=== PATIENT | female | born 1960 | race African-American/Black ===

== ENCOUNTER → 2016-10-27 | Outpatient (CLI) | payer BC ==
--- NOTE | 2016-10-31 09:47 | MM ---
Reason for exam: screening (asymptomatic). Last mammogram was performed 3 years and 3 months ago. History: Patient is postmenopausal. Family history of breast cancer in mother and breast cancer in aunt. Took hormonal contraceptives for 1 year. Physical Findings: A clinical breast exam by your physician is recommended on an annual basis and results should be correlated with mammographic findings. MG Screening Mammo w CAD Bilateral CC and MLO view(s) were taken. XCCL view(s) were taken of the right breast. Prior study comparison: July 29, 2013, bilateral digital screening mammo w/CAD. May 25, 2012, bilateral digital screening mammo w/CAD. May 23, 2011, bilateral digital screening mammo w/CAD. The breast tissue is heterogeneously dense. This may lower the sensitivity of mammography. No significant changes when compared with prior studies. ASSESSMENT: Negative, BI-RAD 1 RECOMMENDATION: Routine screening mammogram of both breasts in 1 year.
== END ==
LOC: RADMAMWWP 16:29
PROVIDERS: ATTEND Internal Medicine
DX: Z12.31 Encounter for screening mammogram for malignant neoplasm of breast (principal)

== ENCOUNTER → 2016-10-27 | Outpatient (CLI) | payer BC ==
--- NOTE | 2016-10-27 16:06 | FL ---
EXAMINATION: Cervical and Thoracic Esophagram DATE OF EXAM: 10/27/2016 12:13 PM CLINICAL INDICATION: 56-year-old female with dysphagia, acid reflux for 6 to 7 months, acid taste in mouth and recurrent episodes of bronchitis. COMPARISON: None Total Fluoroscopy Time: 2.3 minutes FINDINGS: The swallowing mechanism is normal and hypopharyngeal anatomy is preserved. The cervical and thoracic portions have a normal course and caliber and normal motility. The mucosa is normal and no persistent filling defect is encountered. There is a very tiny hiatal hernia. Severe gastroesophageal reflux is seen to the level of the thorac ic inlet. IMPRESSION: Very tiny hiatal hernia. However, there is severe gastroesophageal reflux seen to the level of the th oracic inlet.
== END | disposition home or self-care (01) ==
LOC: RADFLWHC 10:46
PROVIDERS: ATTEND Otolaryngology
DX: K21.9 Gastro-esophageal reflux disease without esophagitis (principal); K44.9 Diaphragmatic hernia without obstruction or gangrene
CPT/HCPCS: 74220

== ENCOUNTER 2016-12-05 07:38 | Day surgery (SDC) | payer BC ==
[2016-12-01 09:10] VITALS: BMI 30.4
[~2016-12-05 07:38] MED LIST: LACTATED RINGERS 1,000 ML IV SCH; LIDOCAINE 1% 20 ML VIAL (10MG/ML) FOR IV START INTRADERMA PRN
[2016-12-05 07:54] VITALS: RESP 16; TEMP 97.5
[2016-12-05] MEDS ORDERED: PROPOFOL 10 MG/ML 20 ML VIAL IV ONE (09:06)
--- NOTE | 2016-12-05 09:29 | P.PCN ---
Date of Procedure: 12/05/16 Preoperative Diagnosis: Postoperative Diagnosis: Procedure(s) Performed: Procedure: Esophagogastroduodenoscopy and biopsy. Preoperative diagnosis: Reflux symptoms, throat complaints and weight loss. Postoperative diagnosis: 1. Small sliding hiatal hernia with no obvious esophagitis or complicated reflux disease. 2. Mild antral gastritis. 3. Multiple biopsies obtained from the duodenum, antrum and esophagus. Preparation and sedation: Was provided by anesthesia. Brief clinical history: The patient is a 56-year-old female who I have evaluated in the office and scheduled for this exam to assess for gastroesophageal reflux disease. The patient has recent onset of throat complaints and was evaluated by ENT and was recommended further evaluation for reflux disease. She has difficulty swallowing at times and spitting of blood and has lost around 8 lbs over the last month or two. This evaluation is to assess for esophagitis or complicated reflux disease. Procedure: With the patient on her left lateral decubitus position and after informed consent and adequate sedation, I passed the Olympus-GIF 160 video upper endoscope through the cricopharyngeus down the esophagus. GE junction was around 40 cm from the incisors and there was a very small sliding hiatal hernia less than 1 cm. The esophagus did not show any obvious erosions or ulcers there were no strictures or Cherry's esophagus. The endoscope was then passed into the stomach which was insufflated with air and inspected in detail including the retroflex view in the cardia. There was some mottling and erythema in the antrum but no ulcers or erosions. Pyloric channel, duodenal bulb, post bulbar area and descending duodenum appeared within normal limits. Because of her symptoms, I obtained biopsies from the duodenum, antrum and esophagus then the endoscope was withdrawn. The patient tolerated the procedure well. Plan: The patient was reassured. Will await biopsy results and make further recommendations. We will keep you updated on her progress. Implants: Indications for Procedure: Operative Findings: Description of Procedure:
[2016-12-05 09:44] VITALS: BP 149/81; PULSE 73
== END 2016-12-05 10:01 | disposition home or self-care (01) ==
LOC: ORWHC2ENDO 07:38
DX: K29.50 Unspecified chronic gastritis without bleeding (principal); K21.0 Gastro-esophageal reflux disease with esophagitis; K44.9 Diaphragmatic hernia without obstruction or gangrene; I10 Essential (primary) hypertension; Z79.899 Other long term (current) drug therapy
CPT/HCPCS: 88305; 88342; 43239; J2704

== ENCOUNTER → 2017-09-08 | Outpatient (CLI) | payer OTHER ==
--- NOTE | 2017-09-08 19:02 | CT ---
EXAMINATION TYPE: CT sinus wo con DATE OF EXAM: 09/08/2017 COMPARISON: NONE HISTORY: c/o headache, sinus pressure CT DLP: 591 mGycm. Automated Exposure Control for Dose Reduction was Utilized. TECHNIQUE: CT scan of the sinuses is performed without contrast, axial images are obtained, coronal r eformatted images are also reviewed. FINDINGS: There is normal development and aeration of the paranasal sinuses. I see no bony destructiv e process. Maxilla is intact. Zygoma appear intact. Orbital margins are intact. There is no evidence of retro-orbital mass. There is bilateral patency of the ostiomeatal complex. CONCLUSION: Normal CT scan of the paranasal sinuses.
== END | disposition home or self-care (01) ==
LOC: RADCTMAIN 18:05
PROVIDERS: ATTEND Internal Medicine
DX: R09.81 Nasal congestion (principal); R51 Headache
CPT/HCPCS: 70486

== ENCOUNTER → 2017-12-27 | Outpatient (CLI) | payer OTHER ==
--- NOTE | 2017-12-28 10:25 | MM ---
Reason for exam: screening (asymptomatic). Last mammogram was performed 1 year and 2 months ago. History: Patient is postmenopausal. Family history of breast cancer in mother and breast cancer in aunt. Took hormonal contraceptives for 1 year. Physical Findings: A clinical breast exam by your physician is recommended on an annual basis and results should be correlated with mammographic findings. MG Screening Mammo w CAD Bilateral CC and MLO view(s) were taken. Prior study comparison: October 27, 2016, bilateral MG screening mammo w CAD. July 29, 2013, bilateral digital screening mammo w/CAD. The breast tissue is heterogeneously dense. This may lower the sensitivity of mammography. No suspicious abnormality. No significant changes when compared with prior studies. ASSESSMENT: Negative, BI-RAD 1 RECOMMENDATION: Routine screening mammogram of both breasts in 1 year.
== END | disposition home or self-care (01) ==
LOC: RADMAMWWP 07:33
PROVIDERS: ATTEND Internal Medicine
DX: Z12.31 Encounter for screening mammogram for malignant neoplasm of breast (principal)
CPT/HCPCS: 77067

== ENCOUNTER → 2018-04-30 | Outpatient (CLI) | payer OTHER ==
--- NOTE | 2018-05-01 04:18 | MR ---
EXAMINATION TYPE: MR forearm LT wo/w con DATE OF EXAM: 04/30/2018 COMPARISON: None HISTORY: Localized swelling, mass and lump since December 2017, no known injury, 10ml gadavist CONTRAST: Standard multiplanar, multisequence MRI departmental protocol utilizing 10ml mL intravenous Gadavist gadolinium contrast. FINDINGS: The radius and ulna appear intact. The flexor and extensor muscles of the forearm appear in tact. I see no evidence of a soft tissue mass. There is no evidence of focal bony destructive process . I see no pathologic fluid collection. Contrast images show no pathologic enhancement. IMPRESSION: Negative MR scan of the left forearm. No evidence of a soft tissue mass. Location of the mass is not specified in the history.
== END | disposition home or self-care (01) ==
LOC: RADMRIMAIN 20:56
PROVIDERS: ATTEND Physician Assistant Medical
DX: R22.32 Localized swelling, mass and lump, left upper limb (principal)
CPT/HCPCS: 73220; A9585

== ENCOUNTER → 2018-05-02 | Outpatient (CLI) | payer OTHER ==
--- NOTE | 2018-05-03 01:45 | MR ---
EXAMINATION TYPE: MR wrist LT wo/w con DATE OF EXAM: 05/02/2018 COMPARISON: None HISTORY: Pain and Swelling, Gadavist 10 CONTRAST: Standard multiplanar, multisequence MRI departmental protocol utilizing 10 mL intravenous Gadavist ga dolinium contrast. FINDINGS: There is moderate wrist joint effusion. The carpal bones are intact. The proximal metacarpa ls are intact. The flexor and extensor tendons of the wrist appear intact. I see no bony destructive process. On the sagittal images there is somewhat extension deformity of the lunate in relation to th e capitate. Scaphoid is intact. I see no evidence of ligamentous tear. There is increased fluid signa l at the triangular cartilage. There is no evidence of a soft tissue mass. IMPRESSION: There is moderate wrist joint effusion and fluid around the carpal bones consistent with a nonspecifi c synovitis. There is malalignment of the lunate capitate articulation suggestive of some ligamentous instability. No fracture seen.
== END ==
LOC: RADMRIMAIN 20:02
PROVIDERS: ATTEND Internal Medicine Rheumatology
DX: M25.439 Effusion, unspecified wrist (principal)
CPT/HCPCS: 73223; A9585

== ENCOUNTER → 2018-05-14 | Outpatient (CLI) | payer OTHER ==
--- NOTE | 2018-05-15 08:39 | XR ---
EXAMINATION TYPE: XR chest 2V DATE OF EXAM: 05/14/2018 COMPARISON: Prior chest x-ray 08/03/2014 HISTORY: Cough, congestion and shortness of breath TECHNIQUE: Frontal and lateral views of the chest are obtained. FINDINGS: There is no focal air space opacity, pleural effusion, or pneumothorax seen. The cardiac silhouette size is within normal limits. The osseous structures are intact. IMPRESSION: No acute cardiopulmonary process.
== END | disposition home or self-care (01) ==
LOC: RADXRMAIN 16:42
PROVIDERS: ATTEND Internal Medicine
DX: R05 Cough (principal)
CPT/HCPCS: 71046

== ENCOUNTER → 2018-09-24 | Outpatient (CLI) | payer OTHER ==
--- NOTE | 2018-09-25 08:28 | XR ---
EXAMINATION TYPE: XR chest 2V DATE OF EXAM: 09/24/2018 COMPARISON: 05/14/2018 INDICATION: Cough TECHNIQUE: Frontal and lateral views of the chest are obtained. FINDINGS: The heart size is normal. The pulmonary vasculature is normal. The lungs are clear. IMPRESSION: 1. No acute pulmonary process.
== END | disposition home or self-care (01) ==
LOC: RADXRMAIN 17:50
PROVIDERS: ATTEND Internal Medicine
DX: R05 Cough (principal)
CPT/HCPCS: 71046

== ENCOUNTER → 2019-01-02 | Outpatient (CLI) | payer OTHER ==
--- NOTE | 2019-01-02 13:37 | MM ---
Reason for exam: screening (asymptomatic). Last mammogram was performed 1 year ago. History: Patient is postmenopausal. Family history of breast cancer in mother and breast cancer in aunt. Took hormonal contraceptives for 1 year. Physical Findings: A clinical breast exam by your physician is recommended on an annual basis and results should be correlated with mammographic findings. MG Screening Mammo w CAD Bilateral CC and MLO view(s) were taken. Prior study comparison: December 27, 2017, bilateral MG screening mammo w CAD. October 27, 2016, bilateral MG screening mammo w CAD. The breast tissue is heterogeneously dense. This may lower the sensitivity of mammography. There are benign appearing round calcifications bilaterally. There is no discrete abnormality. ASSESSMENT: Benign, BI-RAD 2 RECOMMENDATION: Routine screening mammogram of both breasts in 1 year.
== END | disposition home or self-care (01) ==
LOC: RADMAMWWP 07:44
PROVIDERS: ATTEND Internal Medicine
DX: Z12.31 Encounter for screening mammogram for malignant neoplasm of breast (principal)
CPT/HCPCS: 77067

== ENCOUNTER 2020-05-05 17:20 | Emergency (ER) | payer MEDICARE, OTHER ==
[2020-05-05] MEDS ORDERED: ACETAMINOPHEN TAB 325 MG TAB PO STA (17:42)
[2020-05-05] MEDS ORDERED: SODIUM CHLORIDE 0.9% 1,000 ML IV ONE (17:42)
--- NOTE | 2020-05-05 17:42 | ED ---
URI HPI - General Chief Complaint: Upper Respiratory Infection Stated Complaint: Covid symptoms Time Seen by Provider: 05/05/20 17:27 Source: patient Mode of arrival: ambulatory Limitations: no limitations - History of Present Illness Initial Comments: 60yo female presenting for covid exposure with symptoms. Pt states she cannot taste/smell has cough, and at times feels SOB. Patient states that her daughter tested positive for covid. pt denies chest pain. nausea, vomiting, diarrhea. She denies additional complaints. Pt upon arrival appears nontoxic in no acute distress. She does have a low grade fever, no tylenol within last 6 hours. - Related Data Home Medications Medication Instructions Recorded Confirmed Acetaminophen [Tylenol Arthritis] 1,300 mg PO DAILY PRN 12/01/16 12/05/16 Omeprazole(Dose Unknown) 2 tab PO QAM 12/01/16 12/05/16 Zolpidem [Ambien] 10 mg PO HS 12/01/16 12/05/16 Allergies Allergy/AdvReac Type Severity Reaction Status Date / Time No Known Allergies Allergy Verified 05/05/20 17:24 Review of Systems ROS Statement: Those systems with pertinent positive or pertinent negative responses have been documented in the HPI. ROS Other: All systems not noted in ROS Statement are negative. Past Medical History Past Medical History: GERD/Reflux, Hypertension Additional Past Medical History / Comment(s): hx migraines, hiatal hernia, constipatiion, arthritis, History of Any Multi-Drug Resistant Organisms: MRSA Date of last positivie culture/infection: 2013 MDRO Source:: leg leg Past Surgical History: Uterine Ablation Past Anesthesia/Blood Transfusion Reactions: No Reported Reaction Past Psychological History: No Psychological Hx Reported Smoking Status: Never smoker Past Alcohol Use History: Rare Past Drug Use History: None Reported - Past Family History Mother Family Medical History: Cancer General Exam - General Exam Comments Initial Comments: General: The patient is awake and alert, in no distress Eye: Pupils are equal, round and reactive to light, extra-ocular movements are intact. No nystagmus. There is normal conjunctiva bilaterally. No signs of icterus. Ears, nose, mouth and throat: There are moist mucous membranes and no oral lesions. Neck: The neck is supple, there is no tenderness or JVD. Cardiovascular: There is a regular rate and rhythm. No murmur, rub or gallop is appreciated. Respiratory: Lungs are clear to auscultation, respirations are non-labored, breath sounds are equal. No wheezes, stridor, rales, or rhonchi. Gastrointestinal: Soft, non-distended, non-tender abdomen without masses or organomegaly noted. There is no rebound or guarding present. Musculoskeletal: Normal ROM, no tenderness. Strength 5/5. Sensation intact. Pulses equal bilaterally 2+. Neurological: A&O x 3. CN II-XII intact grosslu, There are no obvious motor or sensory deficits. Coordination appears grossly intact. Speech is normal. Skin: Skin is warm and dry and no rashes or lesions are noted. Psychiatric: Cooperative, appropriate mood & affect, normal judgment. Limitations: no limitations Course Vital Signs 05/05/20 05/05/20 05/05/20 17:22 17:24 18:49 Temperature 100.1 F H 98.3 F Pulse Rate 70 88 Respiratory 18 18 16 Rate Blood Pressure 115/72 110/74 O2 Sat by Pulse 96 93 L Oximetry 05/05/20 19:21 Temperature 98.2 F Pulse Rate 68 Respiratory 14 Rate Blood Pressure 122/64 O2 Sat by Pulse 94 L Oximetry Medical Decision Making - Medical Decision Making 60yo female presenting to the ER today for cc of covid symptoms. covd +. CXR clear. Lungs clear. Pt VS documented s 93-94% im not sure if these were automatically transferred from continuous pulse oximetery electronically. pt when evaluated initially and evalluated prior to leaving was 98% on RA with appropriate placement of pulse oximeter and wave force. Pt does not appear in respiratory distress. Results and quarantine instruction/symptomatic treatment and return parameters discussed pt discharged appearing well. Attending agreeable to care plan. - Lab Data Result diagrams: 05/05/20 17:56 05/05/20 17:56 Lab Results 05/05/20 05/05/20 05/05/20 Range/Units 17:56 17:56 18:21 WBC 7.7 (3.8-10.6) k/uL RBC 4.71 (3.80-5.40) m/uL Hgb 14.7 (11.4-16.0) gm/dL Hct 44.2 (34.0-46.0) % MCV 93.8 (80.0-100.0) fL MCH 31.2 (25.0-35.0) pg MCHC 33.3 (31.0-37.0) g/dL RDW 13.4 (11.5-15.5) % Plt Count 201 (150-450) k/uL MPV 9.5 Neutrophils % 70 % Lymphocytes % 21 % Monocytes % 4 % Eosinophils % 1 % Basophils % 3 % Neutrophils # 5.4 (1.3-7.7) k/uL Lymphocytes # 1.6 (1.0-4.8) k/uL Monocytes # 0.3 (0-1.0) k/uL Eosinophils # 0.1 (0-0.7) k/uL Basophils # 0.2 (0-0.2) k/uL Sodium 136 L (137-145) mmol/L Potassium 4.6 (3.5-5.1) mmol/L Chloride 103 (98-107) mmol/L Carbon Dioxide 24 (22-30) mmol/L Anion Gap 9 mmol/L BUN 13 (7-17) mg/dL Creatinine 0.81 (0.52-1.04) mg/dL Est GFR (CKD-EPI)AfAm >90 (>60 ml/min/1.73 sqM) Est GFR (CKD-EPI)NonAf 81 (>60 ml/min/1.73 sqM) Glucose 124 H (74-99) mg/dL Calcium 9.0 (8.4-10.2) mg/dL Total Bilirubin 0.5 (0.2-1.3) mg/dL AST 31 (14-36) U/L ALT 18 (4-34) U/L Alkaline Phosphatase 68 (38-126) U/L Total Protein 7.5 (6.3-8.2) g/dL Albumin 4.1 (3.5-5.0) g/dL Coronavirus (PCR) Detected A (Not Detectd) Disposition Clinical Impression: Loss of taste, Loss of smell, Body aches, COVID-19, Cough Disposition: HOME SELF-CARE Condition: Good Instructions (If sedation given, give patient instructions): Upper Respiratory Infection (ED) Additional Instructions: Please use medication as discussed. Please follow-up with family doctor in the next 2 days. Recommend buying pulse oximeter and monitoring at home. Return for worsening symptoms (Shortness of breath). Please return to emergency room if the symptoms increase or worsen or for any other concerns. Is patient prescribed a controlled substance at d/c from ED?: No Referrals: None,Stated [Primary Care Provider] - 1-2 days Time of Disposition: 19:09
[2020-05-05] MEDS ORDERED: SODIUM CHLORIDE 0.9% 1,000 ML IV SCH (17:45)
[2020-05-05] MEDS ORDERED: DEXAMETHASONE SOD PHOSPHATE 4 MG/ML 1 ML VIAL IV STA (18:12)
[2020-05-05 18:32] LABS: Basophils # (A) 0.2 k/uL (0-0.2); Basophils % (A) 3 %; Eosinophils # (A) 0.1 k/uL (0-0.7); Eosinophils % (A) 1 %; HCT 44.2 % (34.0-46.0); HGB 14.7 gm/dL (11.4-16.0); Lymphocytes # (A) 1.6 k/uL (1.0-4.8); Lymphocytes % (A) 21 %; MCH 31.2 pg (25.0-35.0); MCHC 33.3 g/dL (31.0-37.0); MCV 93.8 fL (80.0-100.0); Mean Platelet Volume 9.5; Monocytes # (A) 0.3 k/uL (0-1.0); Monocytes % (A) 4 %; Neutrophils # (A) 5.4 k/uL (1.3-7.7); Neutrophils % (A) 70 %; Platelet Count 201 k/uL (150-450); RBC 4.71 m/uL (3.80-5.40); RDW 13.4 % (11.5-15.5); WBC 7.7 k/uL (3.8-10.6)
[2020-05-05 18:42] LABS: ALT 18 U/L (4-34); AST 31 U/L (14-36); African American GFR (CKD) >90 (>60 ml/min/1.73 sqM); Albumin 4.1 g/dL (3.5-5.0); Alkaline Phosphatase 68 U/L (38-126); Anion Gap 9 mmol/L; Blood Urea Nitrogen 13 mg/dL (7-17); Carbon Dioxide 24 mmol/L (22-30); Chloride 103 mmol/L (98-107); Glucose 124 mg/dL (74-99); Non-African American GFR(CKD) 81 (>60 ml/min/1.73 sqM); Potassium 4.6 mmol/L (3.5-5.1); Sodium 136 mmol/L (137-145); Total Bilirubin 0.5 mg/dL (0.2-1.3); Total Protein 7.5 g/dL (6.3-8.2)
[2020-05-05 19:23] VITALS: BP 122/64; PULSE 68; RESP 14; TEMP 98.2
--- NOTE | 2020-05-05 19:31 | XR ---
EXAMINATION TYPE: XR chest 2V DATE OF EXAM: 05/05/2020 COMPARISON: 09/24/2018 HISTORY: Cough. Fever TECHNIQUE: FINDINGS: Heart is normal. Lungs are clear of infiltrate. There is no heart failure. There are no hil ar masses. The bony thorax is intact. IMPRESSION: No active cardiopulmonary disease. There is improved inspiration compared to old exam.
== END 2020-05-05 19:23 | disposition home or self-care (01) ==
LOC: EC 17:20
DX: U07.1 COVID-19 (principal); M19.90 Unspecified osteoarthritis, unspecified site; K21.9 Gastro-esophageal reflux disease without esophagitis; Z79.899 Other long term (current) drug therapy; Z86.14 Personal history of Methicillin resistant Staphylococcus aureus infection
CPT/HCPCS: 36415; 80053; 85025; 87635; 71046; 99285; 96374; 96361; J1100

== ENCOUNTER → 2020-06-25 | Outpatient (CLI) | payer MEDICARE, OTHER ==
--- NOTE | 2020-06-25 10:19 | XR ---
EXAMINATION TYPE: XR chest 2V DATE OF EXAM: 06/25/2020 COMPARISON: Chest x-ray May 05, 2020 HISTORY: Covid 19 +2 months earlier with left-sided pain TECHNIQUE: Frontal and lateral views of the chest are obtained. FINDINGS: There is no focal air space opacity, pleural effusion, or pneumothorax seen. The cardiac silhouette size remains within normal limits with atherosclerotic change in aortic knob. The osseo us structures are intact. IMPRESSION: No acute cardiopulmonary process. No significant change from prior.
--- NOTE | 2020-06-26 10:06 | MM ---
Reason for exam: screening (asymptomatic). Last mammogram was performed 1 year and 6 months ago. History: Patient is postmenopausal. Family history of breast cancer in mother and breast cancer in aunt. Took hormonal contraceptives for 1 year. Physical Findings: A clinical breast exam by your physician is recommended on an annual basis and results should be correlated with mammographic findings. MG Screening Mammo w CAD Bilateral CC and MLO view(s) were taken. Prior study comparison: January 02, 2019, bilateral MG screening mammo w CAD. December 27, 2017, bilateral MG screening mammo w CAD. The breast tissue is heterogeneously dense. This may lower the sensitivity of mammography. There are benign appearing round calcifications bilaterally. There is no discrete abnormality. ASSESSMENT: Benign, BI-RAD 2 RECOMMENDATION: Routine screening mammogram of both breasts in 1 year.
== END | disposition home or self-care (01) ==
LOC: RADMAMWWP 09:19
PROVIDERS: ATTEND Internal Medicine
DX: Z12.31 Encounter for screening mammogram for malignant neoplasm of breast (principal); R07.9 Chest pain, unspecified
CPT/HCPCS: 71046; 77067

== ENCOUNTER → 2021-05-18 | Outpatient (CLI) | payer MEDICARE, OTHER ==
--- NOTE | 2021-05-18 12:16 | XR ---
EXAMINATION TYPE: XR lumbosacral spine min 4V DATE OF EXAM: 05/18/2021 CLINICAL HISTORY: Osteoarthritis for 3 to 4 years. Low back pain. TECHNIQUE: Frontal, lateral, and oblique images of the lumbar spine are obtained. COMPARISON: None FINDINGS: There are 5 lumbar type vertebral bodies identified. The lumbar spine shows satisfactory alignment without evidence of acute fracture or dislocation. Mild disc space narrowing L5-S1 level Ve rtebral body heights and disk space heights are otherwise within normal limits. The oblique images are suboptimal due to poor positioning. Facet arthropathy in the mid to lower lumbar spine greatest l eft L4-L5 level. Mild multilevel anterior and lateral spurring is present in the mid to lower lumbar spine. The overlying soft tissue appears unremarkable. IMPRESSION: As above.
== END | disposition home or self-care (01) ==
LOC: RADXRMAIN 10:35
PROVIDERS: ATTEND Internal Medicine
DX: M47.816 Spondylosis without myelopathy or radiculopathy, lumbar region (principal); M51.37 Other intervertebral disc degeneration, lumbosacral region; M25.78 Osteophyte, vertebrae
CPT/HCPCS: 72110

== ENCOUNTER → 2021-09-13 | Outpatient (CLI) | payer MEDICARE, OTHER ==
--- NOTE | 2021-09-14 12:01 | MM ---
Reason for exam: screening (asymptomatic). Last mammogram was performed 1 year and 3 months ago. History: Patient is postmenopausal. Family history of breast cancer in mother and breast cancer in aunt. Took hormonal contraceptives for 1 year. Physical Findings: A clinical breast exam by your physician is recommended on an annual basis and results should be correlated with mammographic findings. MG Screening Mammo w CAD Bilateral CC and MLO view(s) were taken. Prior study comparison: June 25, 2020, bilateral MG screening mammo w CAD. January 02, 2019, bilateral MG screening mammo w CAD. The breast tissue is heterogeneously dense. This may lower the sensitivity of mammography. Benign appearing bilateral calcifications. No significant changes when compared with prior studies. ASSESSMENT: Benign, BI-RAD 2 RECOMMENDATION: Routine screening mammogram of both breasts in 1 year.
== END | disposition home or self-care (01) ==
LOC: RADMAMWWP 08:19
PROVIDERS: ATTEND Internal Medicine
DX: Z12.31 Encounter for screening mammogram for malignant neoplasm of breast (principal); Z78.0 Asymptomatic menopausal state; Z80.3 Family history of malignant neoplasm of breast
CPT/HCPCS: 77067

== ENCOUNTER → 2021-12-20 | Outpatient (CLI) | payer MEDICARE ==
[2021-12-20 18:42] LABS: HGB 12.8 g/dL (12.0-15.0); MCV 96.9 fL (80.0-97.0); Mean Platelet Volume 12.6 fL (9.5-12.2); NRBC Per 100 WBC 0 /100 WBCS (0.0-0.0); Platelet Count 285 X 10*3/uL (140-440); RBC 4.13 X 10*6/uL (4.10-5.20); RDW 14.1 % (11.5-14.5); WBC 7.74 X 10*3/uL (4.50-10.00)
[2021-12-20 19:03] LABS: ALT 17 U/L (8-44); AST 19 U/L (13-35); African American GFR (CKD) 81.1 (60.0-200.0); Albumin 4.4 g/dL (3.8-4.9); Albumin/Globulin Ratio 1.76 (1.60-3.17); Alkaline Phosphatase 70 U/L (41-126); BUN/Creat Ratio 17.44 Ratio (12.00-20.00); Blood Urea Nitrogen 15.7 mg/dL (9.0-27.0); Calcium 9.9 mg/dL (8.7-10.3); Carbon Dioxide 23.7 mmol/L (20.0-27.5); Chloride 107 mmol/L (96-109); Globulin 2.5 g/dL (1.6-3.3); Glucose 140 mg/dL (70-110); Potassium 3.8 mmol/L (3.5-5.5); Sodium 143 mmol/L (135-145); Total Protein 6.9 g/dL (6.2-8.2)
== END | disposition home or self-care (01) ==
LOC: LABWHC1 11:45
PROVIDERS: ATTEND Internal Medicine Interventional Cardiology
DX: I48.0 Paroxysmal atrial fibrillation (principal); I47.1 Supraventricular tachycardia
CPT/HCPCS: 36415; 80053; 84443; 85027

== ENCOUNTER 2022-01-21 21:42 | Observation (INO) | payer MEDICARE ==
[2022-01-21] MEDS ORDERED: SODIUM CHLORIDE 0.9% 1,000 ML IV STA (21:47)
--- NOTE | 2022-01-21 21:48 | ED ---
Chest Pain HPI - General Stated Complaint: Chest Pain Time Seen by Provider: 01/21/22 21:43 - Related Data Home Medications Medication Instructions Recorded Confirmed Zolpidem [Ambien] 10 mg PO HS PRN 12/01/16 01/21/22 Cholecalciferol [Vitamin D3 (25 25 mcg PO DAILY 01/21/22 01/21/22 Mcg = 1000 Iu)] DULoxetine HCL [Cymbalta] 30 mg PO BID 01/21/22 01/21/22 Diltiazem Oral [Cardizem Oral] 30 mg PO DAILY 01/21/22 01/21/22 Gabapentin 800 mg PO DAILY 01/21/22 01/21/22 Losartan [Cozaar] 100 mg PO DAILY 01/21/22 01/21/22 Rivaroxaban [Xarelto] 20 mg PO HS 01/21/22 01/21/22 Rosuvastatin [Crestor] 10 mg PO DAILY 01/21/22 01/21/22 Semaglutide [Rybelsus] 7 mg PO [id number] 01/21/22 01/21/22 hydroCHLOROthiazide 12.5 mg PO DAILY 01/21/22 01/21/22 Allergies Allergy/AdvReac Type Severity Reaction Status Date / Time No Known Allergies Allergy Verified 01/21/22 23:28 Review of Systems ROS Statement: Those systems with pertinent positive or pertinent negative responses have been documented in the HPI. ROS Other: All systems not noted in ROS Statement are negative. EKG Findings - EKG Comments: EKG Findings:: EKG is sinus 88 GA once denying QRS 82 QTC 415 Past Medical History Past Medical History: GERD/Reflux, Hypertension Additional Past Medical History / Comment(s): hx migraines, hiatal hernia, constipatiion, arthritis, History of Any Multi-Drug Resistant Organisms: MRSA Date of last positivie culture/infection: 2013 MDRO Source:: leg leg Past Surgical History: Uterine Ablation Past Anesthesia/Blood Transfusion Reactions: No Reported Reaction Past Psychological History: No Psychological Hx Reported Smoking Status: Never smoker Past Alcohol Use History: Rare Past Drug Use History: None Reported - Past Family History Mother Family Medical History: Cancer Course Vital Signs 01/21/22 01/21/22 01/21/22 21:50 22:06 23:51 Temperature 98.2 F Pulse Rate 86 70 Pulse Rate [ 80 Bilateral Radial] Respiratory 16 16 Rate Blood Pressure 132/88 132/88 O2 Sat by Pulse 100 100 Oximetry Disposition Clinical Impression: Chest pain Disposition: ADMITTED IP TO THIS HOSP Condition: Good Instructions (If sedation given, give patient instructions): Chest Pain (ED) Is patient prescribed a controlled substance at d/c from ED?: No Referrals: Angel Park MD [Primary Care Provider] - 1-2 days
--- NOTE | 2022-01-21 22:05 | XR ---
EXAMINATION TYPE: XR chest 1V portable DATE OF EXAM: 01/21/2022 10:00 PM COMPARISON: Chest x-ray 06/25/2020 TECHNIQUE: XR chest 1V portable . CLINICAL INDICATION:Female, 61 years old with history of chest pain; FINDINGS: Lungs/Pleura: There is no evidence of pleural effusion, focal consolidation, or pneumothorax. Pulmonary vascularity: Unremarkable. Heart/mediastinum: Cardiomediastinal silhouette is unremarkable. Musculoskeletal: No acute osseous pathology. IMPRESSION: No acute cardiopulmonary disease/process.
[2022-01-21 22:09] LABS: Basophils # (A) 0.1 k/uL (0-0.2); Basophils % (A) 1 %; Eosinophils # (A) 0.2 k/uL (0-0.7); Eosinophils % (A) 2 %; HCT 46.7 % (34.0-46.0); HGB 14.6 gm/dL (11.4-16.0); Lymphocytes # (A) 3.5 k/uL (1.0-4.8); Lymphocytes % (A) 35 %; MCH 30.7 pg (25.0-35.0); MCHC 31.4 g/dL (31.0-37.0); MCV 97.8 fL (80.0-100.0); Mean Platelet Volume 9.7; Monocytes # (A) 0.3 k/uL (0-1.0); Monocytes % (A) 3 %; Neutrophils # (A) 5.8 k/uL (1.3-7.7); Neutrophils % (A) 59 %; Platelet Count 307 k/uL (150-450); RBC 4.77 m/uL (3.80-5.40); WBC 9.9 k/uL (3.8-10.6)
[2022-01-21 22:17] LABS: Albumin 4.6 g/dL (3.5-5.0); Calcium 10.1 mg/dL (8.4-10.2); Phosphorus 2.4 mg/dL (2.5-4.5); Potassium 3.9 mmol/L (3.5-5.1); Total Bilirubin 0.4 mg/dL (0.2-1.3); Total Protein 7.5 g/dL (6.3-8.2)
[2022-01-21 22:20] LABS: INR 1.3 (<1.2); Partial Thromboplastin Time 34.6 sec (22.0-30.0); Prothrombin Time 13.9 sec (9.0-12.0)
[2022-01-21] MEDS ORDERED: NITROGLYCERIN SL TABS 0.4 MG TAB SUBLINGUAL PRN (23:52)
[2022-01-21] MEDS ORDERED: ASPIRIN 81 MG PO STA (23:52)
[2022-01-22] MEDS ORDERED: ASPIRIN 325 MG TAB PO SCH (09:00)
[2022-01-22] MEDS ORDERED: HEPARIN SODIUM 1,000 UN/ML (10ML VL) IV PRN (09:40)
[2022-01-22] MEDS ORDERED: HEPARIN SODIUM 1,000 UN/ML (10ML VL) IV ONE (09:40)
[2022-01-22 10:13] LABS: Chol/HDL Ratio 2.45 Ratio; LDL Cholesterol,Calculated 71.9 mg/dL (0.0-131.0); VLDL Calculation 15.06 mg/dL (5.00-40.00)
[2022-01-22] MEDS: HEPARIN SOD,PORK IN 0.45% NACL 25,000 UNIT in 0.45% NACL 1 250ML.BAG IV SCH (10:40)
--- NOTE | 2022-01-22 11:38 | P.CRDCN ---
History of Present Illness Consult date: 01/22/22 History of present illness: History of Present Illness: The patient is a 61-year-old female with known history of hypertension, hyperlipidemia, diabetes mellitus and paroxysmal atrial fibrillation, scheduled to undergo ablation in the next few weeks who presented with symptoms of palpitations, dizziness and presyncope. She had no associated chest discomfort. Her blood pressure was on the low side. On presentation to the emergency room she was in sinus mechanism. There was no evidence of atrial fibrillation since admission. Her creatinine is up to 1.7 which is higher than her baseline, her troponin on presentation was 0.012 subsequently 0.033 and 0.064. She had no acute EKG changes She denies any PND, orthopnea or peripheral edema. She denies any syncope. Her systolic function in the past has been normal and her stress echocardiogram revealed no evidence of stress induced ischemia. The patient has a prior history of SVT and recently was documented to have paroxysmal atrial ablation. Her symptoms started after she had COVID infection. She is trying to increase her physical activity, she has no chest discomfort with activity and she has mild dyspnea. She has no documented history of CHF or ischemic heart disease. Her risk factors are positive for hypertension, hyperlipidemia and diabetes, she is a nonsmoker. Medications: Cardizem 120 mg daily, hydrochlorothiazide 12-1/2 mg daily, Crestor 10 mg daily, losartan 100 mg daily, Xarelto 20 mg daily Review of Systems: Respiratory: She had dyspnea with the arrhythmia GI: No nausea or vomiting . No history of peptic ulcer disease. No recent GI bleed. : No hematuria or dysuria. Nervous System: No stroke or seizure. Physical Examination: 61-year-old female, alert and oriented no apparent distress ,Blood pressure 113/70, Heart rate 69 Head: Normocephalic. Eyes: Sclerae nonicteric. Neck: Good carotid upstroke, no bruit, no jugular venous distention. Lungs: Clear to auscultation. Heart: Regular rate and rhythm, S1-S2, no S3, no rub. Systolic ejection murmur. Abdomen: Soft nontender, positive bowel sounds no organomegaly. Extremities: No edema, intact distal pulses. Labs: BUN 19, creatinine 1.7, potassium 3.9, LDL 71 EKG: Sinus mechanism with no acute ST segment changes Impression: 1. Symptoms of palpitations probably paroxysmal atrial fibrillation in a patient scheduled to undergo ablation. Her score is 3 2. Mild troponin elevation most likely related to the arrhythmia, no evidence to suggest acute ischemic event 3. Acute renal injury, etiology unclear 4. History of hypertension 5. History of diabetes 6. History of hyperlipidemia Plan: 1. Restart Cardizem and statin 2. Hold Cozaar and diuretics 3. Obtain an echocardiogram with Doppler 4. Follow renal functions 5. Depending on her progress further recommendations will be made. Thank you for this consult we will follow with you. Past Medical History Past Medical History: GERD/Reflux, Hypertension Additional Past Medical History / Comment(s): hx migraines, hiatal hernia, constipatiion, arthritis, History of Any Multi-Drug Resistant Organisms: MRSA Date of last positivie culture/infection: 2013 MDRO Source:: leg leg Past Surgical History: Uterine Ablation Past Anesthesia/Blood Transfusion Reactions: No Reported Reaction Past Psychological History: No Psychological Hx Reported Smoking Status: Never smoker Past Alcohol Use History: Rare Past Drug Use History: None Reported - Past Family History Mother Family Medical History: Cancer Medications and Allergies Home Medications Medication Instructions Recorded Confirmed Type Zolpidem [Ambien] 10 mg PO HS PRN 12/01/16 01/21/22 History Cholecalciferol [Vitamin D3 (25 25 mcg PO DAILY 01/21/22 01/21/22 History Mcg = 1000 Iu)] DULoxetine HCL [Cymbalta] 30 mg PO BID 01/21/22 01/21/22 History Diltiazem Oral [Cardizem Oral] 30 mg PO DAILY 01/21/22 01/21/22 History Gabapentin 800 mg PO DAILY 01/21/22 01/21/22 History Losartan [Cozaar] 100 mg PO DAILY 01/21/22 01/21/22 History Rivaroxaban [Xarelto] 20 mg PO HS 01/21/22 01/21/22 History Rosuvastatin [Crestor] 10 mg PO DAILY 01/21/22 01/21/22 History Semaglutide [Rybelsus] 7 mg PO AC-BRKFST 01/21/22 01/21/22 History hydroCHLOROthiazide 12.5 mg PO DAILY 01/21/22 01/21/22 History Allergies Allergy/AdvReac Type Severity Reaction Status Date / Time No Known Allergies Allergy Verified 08/12/22 23:28 Physical Exam Vitals: Vital Signs Temp Pulse Pulse Resp BP Pulse Ox 01/22/22 06:49 69 14 113/75 96 01/21/22 23:51 70 16 132/88 100 01/21/22 22:06 80 01/21/22 21:50 98.2 F 86 16 132/88 100 Intake and Output 01/21/22 01/22/22 01/22/22 22:59 06:59 14:59 Other: Weight 102.058 kg Results 01/21/22 21:50 01/21/22 21:50 Cardiac Enzymes 01/21/22 01/21/22 01/22/22 Range/Units 21:50 21:50 00:40 AST 27 (14-36) U/L Troponin I <0.012 0.033 (0.000-0.034) ng/mL 01/22/22 Range/Units 03:06 AST (14-36) U/L Troponin I 0.064 H* (0.000-0.034) ng/mL Coagulation 01/21/22 Range/Units 21:50 PT 13.9 H (9.0-12.0) sec APTT 34.6 H (22.0-30.0) sec Lipids 01/22/22 Range/Units 03:06 Triglycerides 75.30 (0.00-149.00) mg/dL Cholesterol 147.00 (0.00-200.00) mg/dL HDL Cholesterol 60.00 (40.00-60.00) mg/dL Cholesterol/HDL Ratio 2.45 Ratio CBC 01/21/22 Range/Units 21:50 WBC 9.9 (3.8-10.6) k/uL RBC 4.77 (3.80-5.40) m/uL Hgb 14.6 (11.4-16.0) gm/dL Hct 46.7 H (34.0-46.0) % Plt Count 307 (150-450) k/uL Comprehensive Metabolic Panel 01/21/22 Range/Units 21:50 Sodium 142 (137-145) mmol/L Potassium 3.9 (3.5-5.1) mmol/L Chloride 106 (98-107) mmol/L Carbon Dioxide 20 L (22-30) mmol/L BUN 19 H (7-17) mg/dL Creatinine 1.70 H (0.52-1.04) mg/dL Glucose 144 H (74-99) mg/dL Calcium 10.1 (8.4-10.2) mg/dL AST 27 (14-36) U/L ALT 17 (4-34) U/L Alkaline Phosphatase 87 (38-126) U/L Total Protein 7.5 (6.3-8.2) g/dL Albumin 4.6 (3.5-5.0) g/dL Current Medications Generic Name Dose Route Start Last Admin Trade Name Freq PRN Reason Stop Dose Admin Aspirin 325 mg 01/22/22 09:00 01/22/22 08:06 Aspirin 325 Mg Tab PO 325 mg DAILY [facility] Administration Atorvastatin Calcium 20 mg 01/23/22 09:00 Atorvastatin 20 Mg Tab PO DAILY [facility] Diltiazem HCl 30 mg 01/22/22 11:45 Diltiazem Oral 30 Mg Tab PO TID [facility] Heparin Sodium (Porcine) 0 unit 01/22/22 09:40 Heparin Sodium 1,000 Un/Ml (10ml Vl) IV PER PROTOCOL PRN Low PTT Protocol Heparin Sodium/Sodium Chloride 250 mls @ 10 mls/hr 01/22/22 09:45 01/22/22 10:40 25,000 unit/ Sodium Chloride IV 9.798 units/kg/hr .Q24H SEN 10 mls/hr Administration Protocol 9.798 UNITS/KG/HR Nitroglycerin 0.4 mg 01/21/22 23:52 Nitroglycerin Sl Tabs 0.4 Mg Tab SUBLINGUAL Q5M PRN Chest Pain Intake and Output 01/21/22 01/22/22 01/22/22 22:59 06:59 14:59 Other: Weight 102.058 kg 01/21/22 21:50 01/21/22 21:50
[2022-01-22] MEDS: DILTIAZEM ORAL 30 MG TAB PO SCH ×3 (11:50→20:31)
[2022-01-22] MEDS: DULoxetine HCL 30 MG CAPSULE.DR PO SCH ×2 (13:22→20:31)
--- NOTE | 2022-01-22 14:09 | P.HPIM ---
History of Present Illness H&P Date: 01/22/22 Mattie Conner, is a 61 year old female who presented to [facility] emergency room with a chief complaint of chest pain and palpitation, patient has known history of cardiac arrhythmia she was scheduled to have ablation with Dr. Light on February 21, however she started having chest pressure and palpitation was feeling her heart racing and she decided to come to emergency room. He was evaluated in the emergency room vital examination on presentation revealed a temperature of 98.2 pulse 86 respiration 16 blood pressure 132/88 pulse ox 100% on room air Laboratory data reveals a white blood count of 9.9 hemoglobin 14.6 platelet count 307 sodium 142 potassium 3.9 chloride 106 CO2 20 BUN 19 creatinine 1.7 Testing in the emergency room revealed chest x-ray done in the emergency room revealed no acute cardiopulmonary disease, EKG revealed sinus rhythm with left axis deviation Patient was admitted to medical floor for further evaluation and treatment Past Medical History Past Medical History: GERD/Reflux, Hypertension Additional Past Medical History / Comment(s): hx migraines, hiatal hernia, constipatiion, arthritis, History of Any Multi-Drug Resistant Organisms: MRSA Date of last positivie culture/infection: 2013 MDRO Source:: leg leg Past Surgical History: Uterine Ablation Past Anesthesia/Blood Transfusion Reactions: No Reported Reaction Past Psychological History: No Psychological Hx Reported Smoking Status: Never smoker Past Alcohol Use History: Rare Past Drug Use History: None Reported - Past Family History Mother Family Medical History: Cancer Medications and Allergies Home Medications Medication Instructions Recorded Confirmed Type Zolpidem [Ambien] 10 mg PO HS PRN 12/01/16 01/21/22 History Cholecalciferol [Vitamin D3 (25 25 mcg PO DAILY 01/21/22 01/21/22 History Mcg = 1000 Iu)] DULoxetine HCL [Cymbalta] 30 mg PO BID 01/21/22 01/21/22 History Diltiazem Oral [Cardizem Oral] 30 mg PO DAILY 01/21/22 01/21/22 History Gabapentin 800 mg PO DAILY 01/21/22 01/21/22 History Losartan [Cozaar] 100 mg PO DAILY 01/21/22 01/21/22 History Rivaroxaban [Xarelto] 20 mg PO HS 01/21/22 01/21/22 History Rosuvastatin [Crestor] 10 mg PO DAILY 01/21/22 01/21/22 History Semaglutide [Rybelsus] 7 mg PO AC-BRKFST 01/21/22 01/21/22 History hydroCHLOROthiazide 12.5 mg PO DAILY 01/21/22 01/21/22 History Allergies Allergy/AdvReac Type Severity Reaction Status Date / Time No Known Allergies Allergy Verified 01/21/22 23:28 Physical Exam Vitals: Vital Signs Temp Pulse Pulse Resp BP Pulse Ox 01/22/22 06:49 69 14 113/75 96 01/21/22 23:51 70 16 132/88 100 01/21/22 22:06 80 01/21/22 21:50 98.2 F 86 16 132/88 100 Intake and Output 01/21/22 01/22/22 01/22/22 22:59 06:59 14:59 Other: Weight 102.058 kg Physical exam In general patient is alert and oriented x 3 in no distress HEENT head normocephalic and atraumatic Neck is supple no JVD no goiter no lymphadenopathy no carotid bruit Chest examination is clear to auscultation no crackles no wheezing Cardiac exam reveals regular heart sounds S1 and S2 no gallops no murmurs Abdomen is soft nontender no organomegaly with normal bowel sounds Extremity exam reveals no edema no cyanosis or clubbing Neurological examination reveals no gross focal deficits Results CBC & Chem 7: 01/21/22 21:50 01/21/22 21:50 Labs: Abnormal Lab Results - Last 24 Hours (Table) 01/21/22 01/21/22 01/21/22 Range/Units 21:50 21:50 21:50 Hct 46.7 H (34.0-46.0) % PT 13.9 H (9.0-12.0) sec INR 1.3 H (<1.2) APTT 34.6 H (22.0-30.0) sec Carbon Dioxide 20 L (22-30) mmol/L BUN 19 H (7-17) mg/dL Creatinine 1.70 H (0.52-1.04) mg/dL Glucose 144 H (74-99) mg/dL Phosphorus 2.4 L (2.5-4.5) mg/dL Troponin I (0.000-0.034) ng/mL 01/22/22 Range/Units 03:06 Hct (34.0-46.0) % PT (9.0-12.0) sec INR (<1.2) APTT (22.0-30.0) sec Carbon Dioxide (22-30) mmol/L BUN (7-17) mg/dL Creatinine (0.52-1.04) mg/dL Glucose (74-99) mg/dL Phosphorus (2.5-4.5) mg/dL Troponin I 0.064 H* (0.000-0.034) ng/mL Assessment and Plan Plan: Episode of chest pain with mild elevation in troponin level, at this time patient is admitted to telemetry floor, Xarelto is on hold, patient was started on IV heparin cardiology consultation requested Acute kidney injury was elevated creatinine 1.7 Underlying history of hypertension Underlying history of hyperlipidemia Underlying history of diabetes mellitus At this time patient is admitted to telemetry floor Echocardiogram ordered, cardiology consultation was requested Patient started on IV heparin Will recheck labs and follow closely
--- NOTE | 2022-01-22 15:44 | CA ---
Transthoracic Echo Report Name: Mattie Conner Age: 61 Gender: F : 1960 Exam Date: 01/22/2022 13:25 Exam Location: [facility] Ht (in): 71 Wt (lb): 225 Ordering Physician: Eliud Farr MD ([id number]) Attending/Referring Phys: Ship Captain Alejandra Edgar RDCS Procedure CPT: Indications: svt Cardiac Hx: Technical Quality: Fair Contrast 1: Total Dose (mL): Contrast 2: Total Dose (mL): MEASUREMENTS (Male / Female) Normal Values 2D ECHO LV Diastolic Diameter PLAX 4.8 cm 4.2 - 5.9 / 3.9 - 5.3 cm LV Systolic Diameter PLAX 2.6 cm IVS Diastolic Thickness 1.0 cm 0.6 - 1.0 / 0.6 - 0.9 cm LVPW Diastolic Thickness 1.1 cm 0.6 - 1.0 / 0.6 - 0.9 cm LV Relative Wall Thickness 0.5 RV Internal Dim ED PLAX 3.0 cm LA Volume 50.9 cm??? 18 - 58 / 22 - 52 cm??? M-MODE Aortic Root Diameter MM 3.1 cm LA Systolic Diameter MM 3.4 cm LA Ao Ratio MM 1.1 AV Cusp Separation MM 2.2 cm DOPPLER AV Peak Velocity 124.3 cm/s AV Peak Gradient 6.2 mmHg LVOT Peak Velocity 124.6 cm/s LVOT Peak Gradient 6.2 mmHg MV Area PHT 2.7 cm??? Mitral E Point Velocity 54.6 cm/s Mitral A Point Velocity 84.0 cm/s Mitral E to A Ratio 0.7 MV Deceleration Time 284.4 ms MV E' Velocity 8.8 cm/s Mitral E to MV E' Ratio 6.2 TR Peak Velocity 252.8 cm/s TR Peak Gradient 25.6 mmHg Right Ventricular Systolic Press 29.7 mmHg FINDINGS Left Ventricle Mildly increased left ventricular wall thickness. Left ventricular cavity size normal. Normal left ventricular systolic function with no obvious regional wall motion abnormalities. Left ventricular ejection fraction is estimated at 55-60 %. Normal left ventricular diastolic filling pattern. Right Ventricle Mild right ventricular dilatation. Right ventricular systolic pressure within normal limits. Right Atrium Mild right atrial dilatation. Left Atrium Normal left atrial size. No evidence for an atrial septal defect. Mitral Valve Structurally normal mitral valve. Trace to mild mitral regurgitation. Aortic Valve No aortic valve stenosis or regurgitation. Tricuspid Valve Mild tricuspid regurgitation.structurally normal tricuspid valve. Pulmonic Valve Trace pulmonic regurgitation. Pericardium No pericardial effusion. Aorta Normal size aortic root and proximal ascending aorta. CONCLUSIONS 1. Normal left ventricle size and systolic function 2. Mild mitral and tricuspid regurgitation 3. No pericardial effusion Previewed by: Dr. Eliud Farr MD (Electronically Signed) Final Date: 22 January 2022 15:43
[2022-01-22 16:58] LABS: Glucose,Whole Blood 109 mg/dL (70-110)
[2022-01-22] MEDS: ZOLPIDEM 5 MG TAB PO PRN (20:31)
[2022-01-23 06:15] LABS: Basophils % (A) 1 %; Eosinophils # (A) 0.2 k/uL (0-0.7); Eosinophils % (A) 2 %; HCT 41.3 % (34.0-46.0); HGB 13.1 gm/dL (11.4-16.0); Lymphocytes # (A) 3.7 k/uL (1.0-4.8); Lymphocytes % (A) 54 %; MCH 31.1 pg (25.0-35.0); MCHC 31.8 g/dL (31.0-37.0); MCV 97.8 fL (80.0-100.0); Mean Platelet Volume 8.7; Monocytes # (A) 0.3 k/uL (0-1.0); Monocytes % (A) 4 %; Neutrophils # (A) 2.6 k/uL (1.3-7.7); Neutrophils % (A) 37 %; Platelet Count 270 k/uL (150-450); RBC 4.22 m/uL (3.80-5.40); RDW 13.2 % (11.5-15.5); WBC 6.9 k/uL (3.8-10.6)
[2022-01-23 06:23] LABS: Glucose,Whole Blood 95 mg/dL (70-110)
[2022-01-23 06:30] LABS: Albumin 3.9 g/dL (3.5-5.0); Calcium 9.1 mg/dL (8.4-10.2); Total Bilirubin 0.3 mg/dL (0.2-1.3); Total Protein 6.6 g/dL (6.3-8.2)
[2022-01-23] MEDS: Semaglutide [Rybelsus] 7 MG Tablet PO SCH (07:56)
[2022-01-23] MEDS: LOSARTAN 50 MG TAB PO SCH (07:57)
[2022-01-23] MEDS: DULoxetine HCL 30 MG CAPSULE.DR PO SCH ×2 (07:57→21:13)
[2022-01-23] MEDS: DILTIAZEM ORAL 30 MG TAB PO SCH ×3 (07:57→21:13)
[2022-01-23] MEDS: CHOLECALCIFEROL 25 MCG (1000 IU) TABLET PO SCH (07:57)
[2022-01-23] MEDS: ATORVASTATIN 20 MG TAB PO SCH (07:57)
[2022-01-23] MEDS: hydroCHLOROthiazide 12.5 MG CAP PO SCH (07:57)
[2022-01-23] MEDS: GABAPENTIN 400 MG CAP PO SCH (07:58)
[2022-01-23] MEDS: ASPIRIN 81 MG PO SCH (07:58)
[2022-01-23] MEDS: HEPARIN SOD,PORK IN 0.45% NACL 25,000 UNIT in 0.45% NACL 1 250ML.BAG IV SCH (09:54)
--- NOTE | 2022-01-23 10:57 | P.PN ---
Subjective Progress Note Date: 01/23/22 Mattie Conner, is a 61 year old female who presented to [facility] emergency room with a chief complaint of chest pain and palpitation, patient has known history of cardiac arrhythmia she was scheduled to have ablation with Dr. Light on February 21, however she started having chest pr essure and palpitation was feeling her heart racing and she decided to come to emergency room. He was evaluated in the emergency room vital examination on presentation revealed a temperature of 98.2 pulse 86 respiration 16 blood pressure 132/88 pulse ox 100% on room air Laboratory data reveals a white blood count of 9.9 hemoglobin 14.6 platelet count 307 sodium 142 potassium 3.9 chloride 106 CO2 20 BUN 19 creatinine 1.7 Testing in the emergency room revealed chest x-ray done in the emergency room revealed no acute cardiopulmonary disease, EKG revealed sinus rhythm with left axis deviation Patient was admitted to medical floor for further evaluation and treatment On 01/23/2022 patient was seen and examined on the telemetry floor she is alert and oriented 3 in no apparent distress there is no new episodes of chest pain patient is stable she denies any complaints at this time there is no fever or chills no headache or dizziness no chest pain no shortness of breath no cough no nausea or vomiting no abdominal pain no diarrhea and no urinary symptoms. Kidney function has improved significantly creatinine is down from 1.7-0.89 since yesterday, patient remains on IV heparin, awaiting further recommendation from cardiology Objective - Vital Signs Vital signs: Vital Signs Temp 97.7 F 01/23/22 07:33 Pulse 68 01/23/22 07:33 Resp 13 01/23/22 07:33 BP 105/67 01/23/22 07:33 Pulse Ox 99 01/23/22 07:33 FiO2 21 01/22/22 20:08 Intake & Output 01/22/22 01/23/22 01/23/22 18:59 06:59 18:59 Intake Total 64.5 1090.508 Balance 64.5 1090.508 Weight 102.058 kg Intake: Intake, IV Titration 64.5 120.508 Amount Heparin Sod,Pork in 0.45% 64.5 120.508 NaCl 25,000 unit In 0.45 % NaCl 1 250ml.bag @ 9. 798 UNITS/KG/HR 10 mls/hr IV .Q24H [facility] Rx#: [id number] Oral 970 Other: Voiding Method Toilet Toilet # Voids 1 2 - Exam In general patient is alert and oriented x 3 in no distress HEENT head normocephalic and atraumatic Neck is supple no JVD no goiter no lymphadenopathy no carotid bruit Chest examination is clear to auscultation no crackles no wheezing Cardiac exam reveals regular heart sounds S1 and S2 no gallops no murmurs Abdomen is soft nontender no organomegaly with normal bowel sounds Extremity exam reveals no edema no cyanosis or clubbing Neurological examination reveals no gross focal deficits - Labs CBC & Chem 7: 01/23/22 05:54 01/23/22 05:54 Labs: Abnormal Lab Results - Last 24 Hours (Table) 01/22/22 01/22/22 01/23/22 Range/Units 15:23 22:46 05:54 APTT 71.8 H 43.8 H (22.0-30.0) sec Chloride 108 H (98-107) mmol/L Glucose 107 H (74-99) mg/dL 01/23/22 Range/Units 05:54 APTT 49.2 H (22.0-30.0) sec Chloride (98-107) mmol/L Glucose (74-99) mg/dL Assessment and Plan Plan: Episode of chest pain with mild elevation in troponin level, at this time patient is admitted to telemetry floor, Xarelto is on hold, patient was started on IV heparin cardiology consultation requested Acute kidney injury was elevated creatinine 1.7, improved significantly to creatinine of 0.89 Underlying history of hypertension Underlying history of hyperlipidemia Underlying history of diabetes mellitus At this time patient is admitted to telemetry floor Echocardiogram ordered, cardiology consultation was requested Patient started on IV heparin Will recheck labs and follow closely
[2022-01-23 12:26] LABS: Glucose,Whole Blood 108 mg/dL (70-110)
--- NOTE | 2022-01-23 15:33 | P.PN ---
Subjective Progress Note Date: 01/23/22 This is a pleasant 61-year-old female patient with a history of hypertension, hyperlipidemia and diabetes mellitus as well as paroxysmal atrial fibrillation. She is scheduled for an ablation on February 21. Presented with symptoms of palpitations, dizziness and near syncope. Creatinine was initially up to 1.7 which is back to normal today at 0.86. Troponin on presentation was 0.012 and subsequently 0.033 and 0.064. Since admission she's been maintaining sinus mechanism echocardiogram showed normal LV systolic function with mild MR and TR. She is overall feeling fairly well. She has been restarted on her diltiazem and metoprolol. She continues to feel strange sensation in her left chest but no more palpitations, dizziness or near syncope. Objective - Vital Signs Vital signs: Vital Signs Temp 97.7 F 01/23/22 07:33 Pulse 76 01/23/22 14:01 Resp 15 01/23/22 14:01 BP 119/66 01/23/22 14:01 Pulse Ox 98 01/23/22 14:01 FiO2 21 01/22/22 20:08 Intake & Output 01/22/22 01/23/22 01/23/22 18:59 06:59 18:59 Intake Total 64.5 1090.508 634.687 Balance 64.5 1090.508 634.687 Weight 102.058 kg Intake: Intake, IV Titration 64.5 120.508 34.687 Amount Heparin Sod,Pork in 0.45% 64.5 120.508 34.687 NaCl 25,000 unit In 0.45 % NaCl 1 250ml.bag @ 9. 798 UNITS/KG/HR 10 mls/hr IV .Q24H [facility] Rx#: [id number] Oral 970 600 Other: Voiding Method Toilet Toilet Toilet # Voids 1 2 2 - Exam PHYSICAL EXAMINATION: HEENT: Head is atraumatic, normocephalic. Pupils equal, round. Neck is supple. There is no elevated jugular venous pressure. HEART EXAMINATION: Heart sounds regular, S1 and S2 normal. Systolic ejection murmur. CHEST EXAMINATION: Lungs are clear to auscultation and precussion. No chest wall tenderness is noted on palpation or with deep breathing. ABDOMEN: Soft, nontender. Bowel sounds are heard. No organomegaly noted. EXTREMITIES: 2+ peripheral pulses with no evidence of peripheral edema and no calf tenderness noted. NEUROLOGIC patient is awake, alert and oriented x3. . - Labs CBC & Chem 7: 01/23/22 05:54 01/23/22 05:54 Labs: Abnormal Lab Results - Last 24 Hours (Table) 01/22/22 01/22/22 01/23/22 Range/Units 15:23 22:46 05:54 APTT 71.8 H 43.8 H (22.0-30.0) sec Chloride 108 H (98-107) mmol/L Glucose 107 H (74-99) mg/dL 01/23/22 Range/Units 05:54 APTT 49.2 H (22.0-30.0) sec Chloride (98-107) mmol/L Glucose (74-99) mg/dL Assessment and Plan Assessment: 1. Symptoms of palpitations probably paroxysmal atrial fibrillation in a patient scheduled to undergo ablation. Her score is 3 2. Mild troponin elevation most likely related to the arrhythmia, no evidence to suggest acute ischemic event 3. Acute renal injury, etiology unclear 4. History of hypertension 5. History of diabetes 6. History of hyperlipidemia Plan: Cardiology's perspective medications were reviewed. We will discontinue IV heparin. We will resume the patient's oral dose of Xarelto. From our standpoint she is stable for discharge home. Plan for ablation to be done on February [address] Light is able. HELIARC WELDER note has been reviewed, I agree with a documented findings and plan of care. Patient was seen and examined.
[2022-01-23 16:54] LABS: Glucose,Whole Blood 99 mg/dL (70-110)
[2022-01-23] MEDS ORDERED: RIVAROXABAN 20 MG TAB PO SCH (17:30)
[2022-01-23 20:43] LABS: Glucose,Whole Blood 124 mg/dL (70-110)
[2022-01-23] MEDS: ZOLPIDEM 5 MG TAB PO PRN (21:13)
[2022-01-24 03:58] VITALS: TEMP 97.9
[2022-01-24 06:13] LABS: Glucose,Whole Blood 89 mg/dL (70-110)
[2022-01-24] MEDS: Semaglutide [Rybelsus] 7 MG Tablet PO SCH (06:41)
[2022-01-24 07:34] LABS: ALT 15 U/L (4-34); African American GFR (CKD) >90 (>60 ml/min/1.73 sqM); Albumin 3.9 g/dL (3.5-5.0); Anion Gap 10 mmol/L; Blood Urea Nitrogen 17 mg/dL (7-17); Calcium 9.1 mg/dL (8.4-10.2); Carbon Dioxide 20 mmol/L (22-30); Chloride 108 mmol/L (98-107); Glucose 102 mg/dL (74-99); Non-African American GFR(CKD) 80 (>60 ml/min/1.73 sqM); Sodium 138 mmol/L (137-145); Total Bilirubin 0.4 mg/dL (0.2-1.3); Total Protein 6.8 g/dL (6.3-8.2)
[2022-01-24 07:38] LABS: AST 29 U/L (14-36); Alkaline Phosphatase 58 U/L (38-126); Potassium 4.7 mmol/L (3.5-5.1)
[2022-01-24 07:50] LABS: Basophils % (A) 1 %; Eosinophils # (A) 0.2 k/uL (0-0.7); Eosinophils % (A) 2 %; HCT 41.9 % (34.0-46.0); HGB 13.7 gm/dL (11.4-16.0); Lymphocytes # (A) 2.7 k/uL (1.0-4.8); Lymphocytes % (A) 36 %; MCH 31.7 pg (25.0-35.0); MCHC 32.6 g/dL (31.0-37.0); MCV 97.4 fL (80.0-100.0); Mean Platelet Volume 10.4; Monocytes # (A) 0.3 k/uL (0-1.0); Monocytes % (A) 4 %; Neutrophils # (A) 4.3 k/uL (1.3-7.7); Neutrophils % (A) 56 %; Platelet Count 267 k/uL (150-450); RDW 13.2 % (11.5-15.5); WBC 7.7 k/uL (3.8-10.6)
[2022-01-24] MEDS: LOSARTAN 50 MG TAB PO SCH (08:37)
[2022-01-24] MEDS: CHOLECALCIFEROL 25 MCG (1000 IU) TABLET PO SCH (08:37)
[2022-01-24] MEDS: hydroCHLOROthiazide 12.5 MG CAP PO SCH (08:38)
[2022-01-24] MEDS: ATORVASTATIN 20 MG TAB PO SCH (08:38)
[2022-01-24] MEDS: GABAPENTIN 400 MG CAP PO SCH (08:38)
[2022-01-24] MEDS: DILTIAZEM ORAL 30 MG TAB PO SCH (08:38)
[2022-01-24] MEDS: DULoxetine HCL 30 MG CAPSULE.DR PO SCH (08:38)
[2022-01-24] MEDS: ASPIRIN 81 MG PO SCH (08:38)
[2022-01-24 08:41] VITALS: BP 108/65; PULSE 69; RESP 20
[2022-01-24 12:16] LABS: Glucose,Whole Blood 92 mg/dL (70-110)
--- NOTE | 2022-01-24 14:34 | P.DS ---
Providers Date of admission: 01/21/22 23:52 Expected date of discharge: 01/24/22 Attending physician: Angel Park Consults: 01/21/22 23:52 Consult Physician Urgent Consulting Provider: Eliud Farr Consult Reason/Comments: CP Do you want consulting provider notified?: Yes Primary care physician: [facility] Course: Diagnosis on discharge: Episode of chest pain with mild elevation in troponin level, at this time patient is admitted to telemetry floor, Xarelto is on hold, patient was started on IV heparin cardiology consultation requested, patient was seen by cardiology, echocardiogram was done and was within normal limits no further recommendation for any testing was made, patient was cleared for discharge. Underlying history of cardiac arrhythmia patient is scheduled for ablation next month Acute kidney injury was elevated creatinine 1.7, improved significantly to creatinine of 0.89 Underlying history of hypertension Underlying history of hyperlipidemia Underlying history of diabetes mellitus Hospital course: Mattie Conner, is a 61 year old female who presented to [facility] emergency room with a chief complaint of chest pain and palpitation, patient has known history of cardiac arrhythmia she was scheduled to have ablation with Dr. Light on February 21, however she started having chest pressure and palpitation was feeling her heart racing and she decided to come to emergency room. He was evaluated in the emergency room vital examination on presentation revealed a temperature of 98.2 pulse 86 respiration 16 blood pressure 132/88 pulse ox 100% on room air Laboratory data reveals a white blood count of 9.9 hemoglobin 14.6 platelet count 307 sodium 142 potassium 3.9 chloride 106 CO2 20 BUN 19 creatinine 1.7 Testing in the emergency room revealed chest x-ray done in the emergency room revealed no acute cardiopulmonary disease, EKG revealed sinus rhythm with left axis deviation Patient was admitted to medical floor for further evaluation and treatment On 01/23/2022 patient was seen and examined on the telemetry floor she is alert and oriented 3 in no apparent distress there is no new episodes of chest pain patient is stable she denies any complaints at this time there is no fever or chills no headache or dizziness no chest pain no shortness of breath no cough no nausea or vomiting no abdominal pain no diarrhea and no urinary symptoms. Kidney function has improved significantly creatinine is down from 1.7-0.89 since yesterday, patient remains on IV heparin, awaiting further recommendation from cardiology On 01/24/2022 patient was seen and examined on the telemetry floor, she is alert and oriented 3 in no apparent distress there is no fever or chills no headache or dizziness no chest pain no shortness of breath no cough no nausea or vomiting no abdominal pain no diarrhea and no urinary symptoms he function is back to normal patient was cleared by cardiology she would be discharged to home today follow up in the office within 1 week Patient Condition at Discharge: Good Plan - Discharge Summary New Discharge Prescriptions: New Fluconazole [Diflucan] 150 mg PO DAILY 3 Days #3 tab Aspirin 81 mg PO DAILY tab Nitroglycerin Sl Tabs [Nitrostat] 0.4 mg SUBLINGUAL Q5M PRN tab PRN Reason: Chest Pain Continue Zolpidem [Ambien] 10 mg PO HS PRN PRN Reason: Insomnia Semaglutide [Rybelsus] 7 mg PO AC-BRKFST Rivaroxaban [Xarelto] 20 mg PO HS Diltiazem Oral [Cardizem*] 30 mg PO DAILY hydroCHLOROthiazide 12.5 mg PO DAILY Losartan [Cozaar] 100 mg PO DAILY Gabapentin 800 mg PO DAILY Cholecalciferol [Vitamin D3 (25 Mcg = 1000 Iu)] 25 mcg PO DAILY Rosuvastatin [Crestor] 10 mg PO DAILY DULoxetine HCL [Cymbalta] 30 mg PO BID Discharge Medication List Zolpidem [Ambien] 10 mg PO HS PRN 12/01/16 [History] Cholecalciferol [Vitamin D3 (25 Mcg = 1000 Iu)] 25 mcg PO DAILY 01/21/22 [History] DULoxetine HCL [Cymbalta] 30 mg PO BID 01/21/22 [History] Diltiazem Oral [Cardizem*] 30 mg PO DAILY 01/21/22 [History] Gabapentin 800 mg PO DAILY 01/21/22 [History] Losartan [Cozaar] 100 mg PO DAILY 01/21/22 [History] Rivaroxaban [Xarelto] 20 mg PO HS 01/21/22 [History] Rosuvastatin [Crestor] 10 mg PO DAILY 01/21/22 [History] Semaglutide [Rybelsus] 7 mg PO AC-BRKFST 01/21/22 [History] hydroCHLOROthiazide 12.5 mg PO DAILY 01/21/22 [History] Aspirin 81 mg PO DAILY tab 01/24/22 [Rx] Fluconazole [Diflucan] 150 mg PO DAILY 3 Days #3 tab 01/24/22 [Rx] Nitroglycerin Sl Tabs [Nitrostat] 0.4 mg SUBLINGUAL Q5M PRN tab 01/24/22 [Rx] Follow up Appointment(s)/Referral(s): Angel Park MD [Primary Care Provider] - 1-2 days Patient Instructions/Handouts: Chest Pain (ED) Discharge Disposition: HOME SELF-CARE
== END 2022-01-24 12:01 | disposition home or self-care (01) ==
LOC: EC 21:42 → 6NMEDSUR 23:52 → 3SCARD 01-22 04:26
PROVIDERS: ADMIT Internal Medicine; ATTEND Internal Medicine
DX: R07.89 Other chest pain (principal); N17.9 Acute kidney failure, unspecified; I48.0 Paroxysmal atrial fibrillation; I47.1 Supraventricular tachycardia; E78.5 Hyperlipidemia, unspecified; E11.9 Type 2 diabetes mellitus without complications; R77.8 Other specified abnormalities of plasma proteins; I10 Essential (primary) hypertension; K21.9 Gastro-esophageal reflux disease without esophagitis; G43.909 Migraine, unspecified, not intractable, without status migrainosus; M19.90 Unspecified osteoarthritis, unspecified site; Z86.14 Personal history of Methicillin resistant Staphylococcus aureus infection; Z80.9 Family history of malignant neoplasm, unspecified; Z79.84 Long term (current) use of oral hypoglycemic drugs; Z79.01 Long term (current) use of anticoagulants; Z79.899 Other long term (current) drug therapy
CPT/HCPCS: 96361 ×2; 96365; 96367; 96372 ×2; 96376; 96375; 99285; 36415; 94760; 93005 ×2; 93306; 83880; 80061; 80053 ×3; 83605; 83735; 84100; 84484 ×2; 85025 ×3; 85610; 85730 ×4; 71045; G0378 ×5; J3360; J1644 ×3

== ENCOUNTER → 2022-02-07 | Outpatient (CLI) | payer MEDICARE ==
[2022-02-07 18:23] LABS: HCT 39.8 % (37.2-46.3); HGB 13.2 g/dL (12.0-15.0); MCH 30.9 pg (27.0-32.0); MCHC 33.2 g/dL (32.0-37.0); MCV 93.2 fL (80.0-97.0); Mean Platelet Volume 12.4 fL (9.5-12.2); NRBC Per 100 WBC 0 /100 WBCS (0.0-0.0); Platelet Count 234 X 10*3/uL (140-440); RBC 4.27 X 10*6/uL (4.10-5.20); RDW 13.2 % (11.5-14.5); WBC 6.46 X 10*3/uL (4.50-10.00)
[2022-02-07 19:04] LABS: African American GFR (CKD) 69.7 (60.0-200.0); Blood Urea Nitrogen 11.8 mg/dL (9.0-27.0); Carbon Dioxide 24.2 mmol/L (20.0-27.5); Non-African American GFR(CKD) 60.2 (60.0-200.0); Potassium 4.2 mmol/L (3.5-5.5)
== END | disposition home or self-care (01) ==
LOC: LABPAT 13:07
PROVIDERS: ATTEND Internal Medicine Clinical Cardiac Electrophysiology
DX: Z01.812 Encounter for preprocedural laboratory examination (principal); I48.0 Paroxysmal atrial fibrillation; R55 Syncope and collapse
CPT/HCPCS: 80051; 82565; 84520; 85027

== ENCOUNTER 2022-02-21 13:23 | Day surgery (SDC) | payer MEDICARE ==
[~2022-02-21 13:23] MED LIST changes: +DEXAMETHASONE SOD PHOSPHATE 4 MG/ML 1 ML VIAL IV ONE; -LIDOCAINE 1% 20 ML VIAL (10MG/ML) FOR IV START INTRADERMA PRN; +ONDANSETRON 4 MG/2 ML VIAL IVP ONE
[2022-02-21] MEDS: SODIUM CHLORIDE 0.9% 1,000 ML IV SCH ×2 (14:43→22:22)
[2022-02-21 14:45] LABS: Glucose,Whole Blood 80 mg/dL (70-110)
[2022-02-21] MEDS ORDERED: MIDAZOLAM 2 MG/2 ML VIAL IV PRN (15:42)
[2022-02-21] MEDS ORDERED: DEXTROSE 5%-0.45% NACL 1,000 ML IV ONE (18:19)
[2022-02-21] MEDS ORDERED: DEXTROSE 5% IN WATER 1,000 ML IV ONE (18:22)
[2022-02-21 18:24] LABS: Glucose,Whole Blood 68 mg/dL (70-110)
[2022-02-21] MEDS ORDERED: SUCCINYLCHOLINE CHLORIDE 200 MG/10 ML VIAL IV ONE (18:26)
[2022-02-21] MEDS ORDERED: ISOPROTERENOL 250 MCG/1.25 ML SYR IV ONE (18:26)
[2022-02-21] MEDS ORDERED: MIDAZOLAM 2 MG/2 ML VIAL ONE (18:26)
[2022-02-21] MEDS ORDERED: HEPARIN SODIUM,PORCINE 10,000 UNIT/ML 1 ML VIAL ONE (18:26)
[2022-02-21] MEDS ORDERED: fentaNYL (PF) 50 MCG/ML 2 ML AMP ONE (18:26)
[2022-02-21] MEDS ORDERED: LIDOCAINE 2% INJ 20 MG/ML (2 ML VIAL) ONE (18:26)
[2022-02-21] MEDS ORDERED: PROPOFOL 10 MG/ML 20 ML VIAL IV ONE (18:26)
[2022-02-21] MEDS ORDERED: PHENYLEPHRINE-0.9% NACL SYG 1,000 MCG/10 ML SYRINGE ONE (18:26)
[2022-02-21] MEDS ORDERED: DEXTROSE 5% IN WATER 250 ML IV ONE (18:40)
[2022-02-21] MEDS ORDERED: HEPARIN SOD,PORK IN 0.45% NACL 25,000 UNIT in 0.45% NACL 1 250ML.BAG IV ONE (18:40)
--- NOTE | 2022-02-21 18:41 | P.HPCAR ---
History of Present Illness This is Dr. Light dictating an H/P on this patient The patient was interviewed and examined IMPRESSION / ASSESSMENT: Symptomatic paroxysmal atrial fibrillation with RVR with associated dizziness lightheadedness and feeling of anxiousness and near syncope Structurally normal heart Normal thyroid No recent surgery No alcohol consumption Normal stress test last year PLAN: Proceed with PVI Continue antihypertensive therapy diabetes management Continue Xarelto HPI Patient continues to complain of palpitations She's had atrial fibrillation for greater than 2 years the frequency of these episodes is increasing She comes of palpitations and feels sweaty and almost presyncopal at that time Event monitor documents paroxysms of atrial fibrillation with a very rapid ventricular response during these episodes She has a history of hypertension Diabetes Today her sugar was 89 and now 68 She does not feel dizzy at this time A 2-D echo showed normal LV systolic function Stress echo was normal ROS: No fever chills or rigors, no cough, phlegm or expectoration, no nausea, vomiting or diarrhea, no hematuria, dysuria, no musculoskeletal complaints, no strokes or seizures, no skin lesions. EXAMINATION: Afebrile 98.8F, pulse rate in the 60s, blood pressure 129/91 mmHg Breath sounds are clear no rhonchi no crackles Normal heart sounds no murmurs no gallops no rub Abdomen is soft Extremities warm No JVD Orthopnea REVIEW OF LABS, ECG & MEDICAL DATA Blood glucose 68 Coronavirus PCR nondetectable Medications include diltiazem, hydrochlorothiazide Crestor xarelto losartan and semaglutide Physical Exam Vitals: Vital Signs Temp Pulse Resp BP Pulse Ox 02/21/22 14:40 98.8 F 63 18 129/91 95 Intake and Output 02/21/22 02/21/22 02/21/22 06:59 14:59 22:59 Intake Total 200 Balance 200 Intake: IV 200 Other: Weight 100.6 kg Past Medical History Past Medical History: Atrial Fibrillation, Diabetes Mellitus, GERD/Reflux, Hyperlipidemia, Hypertension, Osteoarthritis (OA) Additional Past Medical History / Comment(s): hx migraines, hiatal hernia, SOB w/exertion, irregular heart rate. recent adm. for chest pain, see Dr. Light H & P History of Any Multi-Drug Resistant Organisms: MRSA Date of last positivie culture/infection: 2013 MDRO Source:: leg leg Past Surgical History: Orthopedic Surgery, Uterine Ablation Additional Past Surgical History / Comment(s): left wrist surg., right thumb trigger finger surg. Past Anesthesia/Blood Transfusion Reactions: No Reported Reaction Smoking Status: Never smoker - Past Family History Mother Family Medical History: Cancer Physical Examination Vital Signs Temp Pulse Resp BP Pulse Ox 02/21/22 14:40 98.8 F 63 18 129/91 95 Intake and Output 02/21/22 02/21/22 02/21/22 06:59 14:59 22:59 Intake Total 200 Balance 200 Intake: IV 200 Other: Weight 100.6 kg Results Current Medications Generic Name Dose Route Start Last Admin Trade Name Freq PRN Reason Stop Dose Admin Hydromorphone HCl 0.5 mg 02/21/22 06:29 Hydromorphone 0.5 Mg/0.5 Ml Syringe IVP 02/21/22 23:00 Q5M PRN Phase 1 or 2 - Pain Control Lactated Ringer's 1,000 mls @ 20 mls/hr 02/21/22 06:29 Lactated Ringers IV 03/23/22 06:30 .Q24H SEN Sodium Chloride 1,000 mls @ 50 mls/hr 02/21/22 06:29 02/21/22 14:43 Saline 0.9% IV 03/23/22 06:30 200 mls .Q20H SEN Administration Dextrose/Water 1,000 mls @ 100 mls/hr 02/21/22 18:22 Dextrose 5%-Water Iv Soln IV 02/22/22 04:21 .Q10H ONE Midazolam HCl 2 mg 02/21/22 15:42 02/21/22 16:06 Midazolam 2 Mg/2 Ml Vial IV 03/23/22 15:46 2 mg ONCE PRN Administration Anxiety Intake and Output 02/21/22 02/21/22 02/21/22 06:59 14:59 22:59 Intake Total 200 Balance 200 Intake: IV 200 Other: Weight 100.6 kg Patient Weight 02/22/22 06:59 Weight 100.6 kg
[2022-02-21] MEDS ORDERED: LIDOCAINE 1% INJ 10MG/ML (5 ML VIAL-PF) SQ ONE ×2 (18:55→18:57)
[2022-02-21 19:12] LABS: Glucose,Whole Blood 190 mg/dL (70-110)
[2022-02-21 20:00] LABS: Glucose,Whole Blood 133 mg/dL (70-110)
[2022-02-21] MEDS ORDERED: IOPAMIDOL-370 100ML BTL INJ ONE (20:45)
[2022-02-21] MEDS ORDERED: RIVAROXABAN 20 MG TAB PO SCH (21:00)
[2022-02-21] MEDS ORDERED: ACETAMINOPHEN IV (For NPO) 1,000 MG in EMPTY BAG 1 BAG IVPB ONE (21:00)
--- NOTE | 2022-02-21 21:03 | P.EPPROC ---
- EP Procedure Note Electrophysiology Procedure Note: PROCEDURE A. fib ablation/PVI DIAGNOSIS Paroxysmal Atrial fibrillation, symptomatic, refractory to therapy RESULT No left atrial appendage mass seen on intracardiac echo Thickened pericardium consistent with chronic pericarditis with trace pericardial effusion especially in the basal segment and behind the left atrium Successful A. fib ablation/pulmonary vein isolation of all veins using cryo- ablation Complete entrance block in all 4 veins confirmed No evidence for phrenic nerve injury Esophageal deflection YES, left-sided esophagus PROCEDURE DETAILS Patient was brought to the EP lab in a fasting state after obtaining written informed consent. Procedure performed under general anesthesia Esophagus was intubated. Esophageal temperature monitoring with circa catheter. Esophageal deflection with an endoscope to avoid hypothermia of the esophagus. After initial muscle relaxant use, muscle relaxants were not given thereafter in order to assess phrenic nerve during procedure. Patient prepped and draped as per protocol Cryo ablation-set up with standard preparation of the cryoablation tools done. Femoral Venous access obtained on the right and left groins and sheaths placed Diagnostic catheters for the high right atrium, phrenic nerve stimulation and pacing, His bundle, coronary sinus placed Intracardiac echo catheter placed. Long sheath placed in the right atrium Left and right transseptal catheterization performed under intracardiac echo guidance. Intravenous heparin with aCT above 300 Later, catheter positioning and balloon positioning in the left atrium and pulmonary veins, under intracardiac echo guidance Diagnostic EP study with coronary sinus pacing and recording Baseline measurements: Sinus cycle length 1048 ms, PA interval 166 ms, QRS 97 ms and QT 380 ms Sinus recovery times at 600, 504 100 ms were 06/12/2007, 918 and 1240 ms respectively Corresponding carotid sinus recovery times normal AV node Wenckebach block 590 ms, prolonged High-dose Isuprel induced Burst stimulation of the high right atrium from 400 ms down to 280 ms No atrial fibrillation induced AH interval 84, HV interval 48 ms Transseptal catheterization performed RA pressure 15/9/13 LA pressure 20/10/14 Transseptal catheterization performed with standard sheath. The cryoablation sheath was then placed with an over the wire exchange without any acute complications. The cryoablation balloon was placed in the office of each pulmonary vein and all 4 pulmonary veins were isolated. IV dye was injected to confirm occlusion. Goal: achieve complete occlusion of the pulmonary vein, achieve -30 degrees C at 30 seconds and achieve -40 degrees C at 60 seconds and a time to effect of less than 60 seconds. If not, the balloon was repositioned to obtain this result After completion of Cryoblation with durations from 180-240 seconds, entrance block was confirmed with the Attain circular catheter in a roving fashion around the antrum of the pulmonary veins Phrenic nerve pacing was performed from the SVC, right innominate vein area and diaphragm voltage was monitored. Diaphragmatic contractions were also monitored manually for strength of contraction. At the end of the procedure the Achieve catheter was once again used to check for entrance block Phrenic nerve stimulation was performed to confirm diaphragmatic stimulation the end of the procedure This procedure was longer than usual because of a large right-sided pulmonary veins and a very complex anatomy of the right inferior vein with 3 separate tributaries It was difficult to engage the balloon within the office Finally with less counterclockwise stroke were able to individually isolate these veins in the antral level Multiple short cryoablation lesions were performed and the vein was completely isolated and remained so at the end of the procedure The right superior pulmonary vein was very large and required cryo-lesions for complete isolation Cine fluoroscopy was performed at the very end of the procedure to confirm movement of both diaphragms with inspiration and expiration At the end of the procedure the patient was extubated Venous sheaths were removed and hemostasis assured with a closure device PROCEDURES PERFORMED Diagnostic EP study CS pacing and recording Left and right transseptal catheterization Catheter the mapping of the tachycardia Intracardiac echocardiography Pulmonary vein isolation with transseptal and comprehensive EPS, [id number] Drug infusion, [id number] Increase procedure services
--- NOTE | 2022-02-21 21:04 | P.PRLE ---
RE: Mattie Conner Dear Angel Mrs. Ramos underwent successful A. fib ablation for management of symptomatic episodes associated with presyncope She will continue xarelto as well as her diabetes and hypertension medications as before Thank you for entrusting me with the care of the patient Warm regards Sincerely David Light
[2022-02-21] MEDS: HYDROmorphone 0.5 MG/0.5 ML SYRINGE IVP PRN ×2 (21:15→21:36)
[2022-02-21 21:24] LABS: Glucose,Whole Blood 128 mg/dL (70-110)
[2022-02-21] MEDS: DULoxetine HCL 30 MG CAPSULE.DR PO SCH (22:23)
[2022-02-22] MEDS ORDERED: ACETAMINOPHEN TAB 325 MG TAB PO PRN
[2022-02-22] MEDS ORDERED: NON FORMULARY DRUG (Semaglutide [Rybelsus] 7 MG Tablet) PO SCH (07:30)
[2022-02-22 07:44] LABS: Glucose,Whole Blood 116 mg/dL (70-110)
[2022-02-22] MEDS ORDERED: COLCHICINE 0.6 MG EACH PO ONE (08:18)
[2022-02-22 08:52] VITALS: BP 131/73; PULSE 84; RESP 17; TEMP 98.1
[2022-02-22] MEDS: DULoxetine HCL 30 MG CAPSULE.DR PO SCH (08:58)
[2022-02-22] MEDS ORDERED: GABAPENTIN 300 MG CAP PO SCH (09:00)
[2022-02-22] MEDS ORDERED: LOSARTAN 50 MG TAB PO SCH (09:00)
[2022-02-22] MEDS ORDERED: hydroCHLOROthiazide 12.5 MG CAP PO SCH (09:00)
[2022-02-22] MEDS ORDERED: ATORVASTATIN 20 MG TAB PO SCH (09:00)
--- NOTE | 2022-02-22 09:41 | P.DS ---
Providers Attending physician: David Light Primary care physician: [facility] Emergency Course: This is a 61-year-old female who underwent successful atrial fibrillation on 02/21/2022. The patient is doing well postprocedure. She reports very mild chest discomfort this morning in which she will be started on colchicine. Denies shortness of breath. Telemetry reveals sinus mechanism. The patient's vital signs are stable. The patient was deemed stable for discharge home today per Dr. Light. Please see EMR for further hospital course details. Discharge diagnosis Paroxysmal Atrial fibrillation, symptomatic, refractory to therapy Nurse practitioner note has been reviewed by physician. Signing provider agrees with the documented findings, assessment, and plan of care. Plan - Discharge Summary Discharge Rx Participant: Yes New Discharge Prescriptions: New Colchicine [Colcrys] 0.6 mg PO DAILY #14 tablet Continue Zolpidem [Ambien] 10 mg PO HS PRN PRN Reason: Insomnia Semaglutide [Rybelsus] 7 mg PO AC-BRKFST Rivaroxaban [Xarelto] 20 mg PO HS hydroCHLOROthiazide 12.5 mg PO DAILY Losartan [Cozaar] 50 mg PO DAILY Gabapentin 300 mg PO DAILY Cholecalciferol [Vitamin D3 (25 Mcg = 1000 Iu)] 25 mcg PO CANNON Rosuvastatin [Crestor] 10 mg PO DAILY DULoxetine HCL [Cymbalta] 30 mg PO BID Nitroglycerin Sl Tabs [Nitrostat] 0.4 mg SUBLINGUAL Q5M PRN tab PRN Reason: Chest Pain Discontinued Diltiazem Oral [Cardizem*] 30 mg PO DAILY Discharge Medication List Zolpidem [Ambien] 10 mg PO HS PRN 12/01/16 [History] Cholecalciferol [Vitamin D3 (25 Mcg = 1000 Iu)] 25 mcg PO CANNON 01/21/22 [History] DULoxetine HCL [Cymbalta] 30 mg PO BID 01/21/22 [History] Gabapentin 300 mg PO DAILY 01/21/22 [History] Losartan [Cozaar] 50 mg PO DAILY 01/21/22 [History] Rivaroxaban [Xarelto] 20 mg PO HS 01/21/22 [History] Rosuvastatin [Crestor] 10 mg PO DAILY 01/21/22 [History] Semaglutide [Rybelsus] 7 mg PO AC-BRKFST 01/21/22 [History] hydroCHLOROthiazide 12.5 mg PO DAILY 01/21/22 [History] Nitroglycerin Sl Tabs [Nitrostat] 0.4 mg SUBLINGUAL Q5M PRN tab 01/24/22 [Rx] Colchicine [Colcrys] 0.6 mg PO DAILY #14 tablet 02/22/22 [Rx] Follow up Appointment(s)/Referral(s): Eliud Farr MD [STAFF PHYSICIAN] - 02/28/22 3:00 pm Patient Instructions/Handouts: Cardiac Ablation (DC) Activity/Diet/Wound Care/Special Instructions: Post EP study - Ablation instructions 1. Keep access sites dry for 2 days. 2. No heavy lifting or straining for 2 days. 3. Avoid bending the hips repeatedly for 2 days. 4. You may go up and down stairs slowly Call if the following is noted 1. Bleeding, increasing swelling or pain at the access sites. 2. Increasing chest discomfort, especially upon taking a deep breath. 3. Increasing shortness of breath, at rest or with exertion. 4. Undue cough / phlegm 5. Difficulty or pain while swallowing. 6. Pain or change in color in the extremities. 7. Fever, chills, rigors. 8. Increasing headache or neurologic symptoms. 9. Dizziness, fainting, palpitations Discharge Disposition: HOME SELF-CARE
[2022-02-22 11:29] LABS: Glucose,Whole Blood 125 mg/dL (70-110)
== END 2022-02-22 12:45 | disposition home or self-care (01) ==
LOC: CATHEP 13:23 → 6NMEDSUR 20:40 → CATHEP 02-22 12:45
PROVIDERS: ATTEND Internal Medicine Clinical Cardiac Electrophysiology
DX: I48.0 Paroxysmal atrial fibrillation (principal); R55 Syncope and collapse; I10 Essential (primary) hypertension; E11.9 Type 2 diabetes mellitus without complications; K21.9 Gastro-esophageal reflux disease without esophagitis; E78.5 Hyperlipidemia, unspecified; M19.90 Unspecified osteoarthritis, unspecified site; Z79.899 Other long term (current) drug therapy; Z79.890 Hormone replacement therapy; Z20.822 Contact with and (suspected) exposure to COVID-19
CPT/HCPCS: 93656; 93623; 87635; C1894 ×2; C1769 ×4; C1760; C1730 ×2; C1759; C1893; C1733; C1766; J2250; J2001; J0131; J1170; Q9967; J1644

== ENCOUNTER → 2022-09-14 | Outpatient (CLI) | payer MEDICARE, OTHER ==
--- NOTE | 2022-09-15 08:44 | MM ---
Reason for Exam: Screening (asymptomatic). Last screening mammogram was performed 12 month(s) ago. Patient History: Menarche at age 14. First Full-Term at age 23. Postmenopausal. Patient used Hormonal Contraceptives for 1 year. Maternal aunt had breast cancer at or over age 50. Mother had breast cancer at or over age 50. Risk Values: Nikki 5 year model risk: 2.7%. NCI Lifetime model risk: 13.6%. Prior Study Comparison: 01/02/2019 Bilateral Screening Mammogram, [facility]. 06/25/2020 Bilateral Screening Mammogram, [facility]. 09/13/2021 Bilateral Screening Mammogram, [facility]. Tissue Density: The breast tissue is heterogeneously dense. This may lower the sensitivity of mammography. Findings: Analyzed By CAD. 5 mm nodular density upper outer left breast 6.7 cm from the nipple requires additional evaluation with a spot compression views and true lateral view of the left breast. No suspicious calcifications within either breast. Overall Assessment: Incomplete: need additional imaging evaluation, BI-RAD 0 Management: Diagnostic Mammogram of the left breast. A clinical breast exam by your physician is recommended on an annual basis and results should be correlated with mammographic findings. Electronically signed and approved by: Burke Alanis M.D. Radiologis
== END | disposition home or self-care (01) ==
LOC: RADMAMWWP 13:51
PROVIDERS: ATTEND Internal Medicine
DX: Z12.31 Encounter for screening mammogram for malignant neoplasm of breast (principal); Z78.0 Asymptomatic menopausal state; Z80.3 Family history of malignant neoplasm of breast
CPT/HCPCS: 77063; 77067

== ENCOUNTER → 2022-09-21 | Outpatient (CLI) | payer MEDICARE, OTHER ==
--- NOTE | 2022-09-21 15:23 | MM ---
Reason for Exam: Clinical finding. Last screening mammogram was performed less than 1 month ago. Patient History: Menarche at age 14. First Full-Term at age 23. Postmenopausal. Patient used Hormonal Contraceptives for 1 year. Maternal aunt had breast cancer at or over age 50. Mother had breast cancer at or over age 50. Risk Values: Nikki 5 year model risk: 2.7%. NCI Lifetime model risk: 13.6%. Prior Study Comparison: 06/25/2020 Bilateral Screening Mammogram, [facility]. 09/13/2021 Bilateral Screening Mammogram, [facility]. 09/14/2022 Bilateral MG 3D screening mammo w/cad, [facility]. Tissue Density: Left: The breast tissue is heterogeneously dense. This may lower the sensitivity of mammography. Findings: Analyzed By CAD. Persistent 7 mm asymmetry within the outer left breast posteriorly on the CC view. No suspicious calcifications. Overall Assessment: Incomplete: need additional imaging evaluation, BI-RAD 0 Management: Diagnostic Breast Ultrasound of the left breast. A clinical breast exam by your physician is recommended on an annual basis and results should be correlated with mammographic findings. This exam should not preclude additional follow-up of suspicious palpable abnormalities. Results were given to the patient verbally at the time of exam. Electronically signed and approved by: James Hodges D.O.
--- NOTE | 2022-09-21 15:25 | USB ---
Patient History: Menarche at age 14. First Full-Term at age 23. Postmenopausal. Patient used Hormonal Contraceptives for 1 year. Maternal aunt had breast cancer at or over age 50. Mother had breast cancer at or over age 50. Risk Values: Nikki 5 year model risk: 2.7%. NCI Lifetime model risk: 13.6%. Prior Study Comparison: 06/25/2020 Bilateral Screening Mammogram, [facility]. 09/13/2021 Bilateral Screening Mammogram, [facility]. 09/14/2022 Bilateral MG 3D screening mammo w/cad, [facility]. Findings: Targeted ultrasound of the left breast from 3-6 o'clock was performed with additional evaluation of the nipple and axilla. No solid or cystic lesion identified. No suspicious lymphadenopathy.. Overall Assessment: Probably benign, BI-RAD 3 Management: Diagnostic Mammogram of the left breast in 6 months. A clinical breast exam by your physician is recommended on an annual basis and results should be correlated with mammographic findings. This exam should not preclude additional follow-up of suspicious palpable abnormalities. Results were given to the patient verbally at the time of exam. Electronically signed and approved by: James Hodges D.O.
== END | disposition home or self-care (01) ==
LOC: RADMAMWWP 10:21
PROVIDERS: ATTEND Internal Medicine
DX: R92.8 Other abnormal and inconclusive findings on diagnostic imaging of breast (principal); Z78.0 Asymptomatic menopausal state; Z80.3 Family history of malignant neoplasm of breast
CPT/HCPCS: 77065; 76642; G0279; 77061

== ENCOUNTER → 2023-02-16 | Outpatient (CLI) | payer MEDICARE, OTHER ==
--- NOTE | 2023-02-16 18:58 | XR ---
EXAMINATION TYPE: XR foot complete RT DATE OF EXAM: 02/16/2023 COMPARISON: NONE HISTORY: 62-year-old female M79.674 PAIN IN RIGHT TOE TECHNIQUE: 3 views FINDINGS: Mild hallux valgus with bunion and mild degenerative change first MTP joint. Moderate sized plantar h eel spur. No acute fracture, subluxation, or dislocation. IMPRESSION: Mild hallux valgus with bunion and mild first MTP joint OA. Moderate sized plantar heel spur. No acut e osseous abnormality seen.
== END | disposition home or self-care (01) ==
LOC: RADXRMAIN 10:35
PROVIDERS: ATTEND Internal Medicine
DX: M20.11 Hallux valgus (acquired), right foot (principal); M19.071 Primary osteoarthritis, right ankle and foot; M21.611 Bunion of right foot; M77.31 Calcaneal spur, right foot

== ENCOUNTER → 2023-09-12 | Outpatient (CLI) | payer MEDICARE, OTHER ==
--- NOTE | 2023-09-12 11:17 | MM ---
Reason for Exam: Follow-up at short interval from prior study. Last screening mammogram was performed 12 month(s) ago. Patient History: Menarche at age 14. First Full-Term at age 23. Postmenopausal. Patient used Hormonal Contraceptives for 1 year. Maternal aunt had breast cancer at or over age 50. Mother had breast cancer at or over age 50. Risk Values: Nikki 5 year model risk: 2.4%. NCI Lifetime model risk: 10.5%. Tissue Density: The breasts are heterogeneously dense, which may obscure small masses. Findings: Analyzed By CAD. No evidence for mass or distortion. No suspicious calcifications evident. Overall Assessment: Negative, BI-RAD 1 Management: Screening Mammogram of both breasts in 1 year. . Results were given to the patient verbally at the time of exam. Patient should continue monthly self-breast exams. A clinical breast exam by your physician is recommended on an annual basis. This exam should not preclude additional follow-up of suspicious palpable abnormalities. Note on Nikki scores and lifetime risk: 1. A Nikki score greater than 3% is considered moderate risk. If this is the case, consider specialist referral to assess eligibility for a risk reducing agent. 2. If overall lifetime risk for the development of breast cancer is 20% or higher, the patient may qualify for future screening with alternating mammogram and breast MRI. Electronically signed and approved by: Burke Alanis M.D. Radiologis
== END | disposition home or self-care (01) ==
LOC: RADMAMWWP 10:41
PROVIDERS: ATTEND Internal Medicine
DX: R92.333 Mammographic heterogeneous density, bilateral breasts (principal); Z78.0 Asymptomatic menopausal state; Z80.3 Family history of malignant neoplasm of breast
CPT/HCPCS: 77062; 77066

== ENCOUNTER → 2023-09-19 | Outpatient (CLI) | payer MEDICARE, OTHER ==
--- NOTE | 2023-09-20 07:26 | XR ---
EXAMINATION TYPE: XR chest 2V DATE OF EXAM: 09/19/2023 COMPARISON: 01/21/2022 HISTORY: Shortness of breath TECHNIQUE: Frontal and lateral views of the chest are obtained. FINDINGS: Scattered senescent parenchymal changes noted. No evidence for infiltrate. No evidence for atelectasis. Heart size is stable. Mediastinal structures are stable and grossly unremarkable. No evidence for hilar prominence. Degenerative changes dorsal spine. IMPRESSION: 1. No evidence for acute pulmonary disease.
== END | disposition home or self-care (01) ==
LOC: RADXRMAIN 12:20
PROVIDERS: ATTEND Internal Medicine
DX: R06.02 Shortness of breath (principal); R05.9 Cough, unspecified
CPT/HCPCS: 71046

== ENCOUNTER → 2024-04-10 | Outpatient (CLI) | payer MEDICARE, OTHER ==
--- NOTE | 2024-04-11 14:03 | MR ---
EXAMINATION TYPE: MR lumbar spine wo con DATE OF EXAM: 04/10/2024 10:57 AM COMPARISON: 08/17/2022. CLINICAL INDICATION: Female, 64 years old with history of M54.50 Low back pain, Low back pain into th e left buttocks and leg TECHNIQUE: Multi planar, multi sequence imaging was performed utilizing: T1-weighted, T2-weighted, a nd turbo inversion recovery imaging of the lumbar spine. IV Contrast: cc . (None if empty) FINDINGS: Alignment: The lumbar vertebral bodies have preserved heights and alignment. Cord: The conus medullaris and the distal spinal cord appear unremarkable with regards to their signa l intensity and morphology. Bones/Discs: Mild degeneration changes throughout the spine with osteophyte formation and facet joint arthropathy. Intervertebral disc signal is maintained. No abnormal inversion recovery signal to sugg est bony edema. High T1/T2 signal in the L1 vertebral body compatible with vertebral body hemangioma. T12-L1: No evidence of significant spinal canal stenosis or neural foraminal stenosis. L1-L2: No evidence of significant spinal canal stenosis or neural foraminal stenosis. L2-L3: No evidence of significant spinal canal stenosis or neural foraminal stenosis. L3-L4: No evidence of significant spinal canal stenosis or neural foraminal stenosis. L4-L5: No evidence of significant spinal canal stenosis or neural foraminal stenosis. L5-S1: The disc has a rounded posterior morphology without significant spinal canal stenosis. Facet j oint arthropathy with mild bilateral neural foraminal stenosis. No significant spinal canal or neural foraminal stenosis in the remainder of the visualized levels. Other findings: None. IMPRESSION: No significant change from prior. 1. No definitive evidence of disc herniation or significant spinal canal stenosis. 2. Mild disc degeneration with associated osteoarthritic changes. [facility], , 04/11/2024 2:00 PM
== END | disposition home or self-care (01) ==
LOC: RADMRIMAIN 09:57
PROVIDERS: ATTEND Internal Medicine
DX: M51.369 Other intervertebral disc degeneration, lumbar region without mention of lumbar back pain or lower extremity pain (principal)
CPT/HCPCS: 72148

== ENCOUNTER → 2024-10-15 | Outpatient (CLI) | payer MEDICARE, OTHER ==
--- NOTE | 2024-10-16 07:42 | MM ---
Reason for Exam: Screening (asymptomatic). Last mammogram was performed 1 year(s) and 1 month(s) ago. Patient History: Menarche at age 14. First Full-Term at age 23. Postmenopausal. Patient used Hormonal Contraceptives for 1 year. Risk Values: Nikki 5 year model risk: 1.5%. NCI Lifetime model risk: 6.5%. Prior Study Comparison: 12/27/2017 Bilateral Screening Mammogram, [facility]. 01/02/2019 Bilateral Screening Mammogram, [facility]. 06/25/2020 Bilateral Screening Mammogram, [facility]. 09/13/2021 Bilateral Screening Mammogram, [facility]. 09/14/2022 Bilateral MG 3D screening mammo w/cad, [facility]. 09/21/2022 Left MG 3D work up w/cad LT, [facility]. 03/28/2023 Left MG 3D diag mammo w/cad LT, [facility]. 09/12/2023 Bilateral MG 3D diag mammo w/cad STEVEN, [facility]. Tissue Density: The breasts are heterogeneously dense, which may obscure small masses. Findings: Analyzed By CAD. Right breast: There is no suspicious group of microcalcifications or new suspicious mass. Left breast: There is no suspicious group of microcalcifications or new suspicious mass. Overall Assessment: Negative, BI-RAD 1 Management: Screening Mammogram of both breasts in [address] [facility] will attempt to contact patient to return for supplemental views and ultrasound if indicated. Patient should continue monthly self-breast exams. A clinical breast exam by your physician is recommended on an annual basis. This exam should not preclude additional follow-up of suspicious palpable abnormalities. Note on Nikki scores and lifetime risk: 1. A Nikki score greater than 3% is considered moderate risk. If this is the case, consider specialist referral to assess eligibility for a risk reducing agent. 2. If overall lifetime risk for the development of breast cancer is 20% or higher, the patient may qualify for future screening with alternating mammogram and breast MRI. [facility], , 10/16/2024 7:39 AM. Electronically signed and approved by: Juancho Nguyen DO
== END | disposition home or self-care (01) ==
LOC: RADMAMWWP 13:58
PROVIDERS: ATTEND Internal Medicine
DX: Z12.31 Encounter for screening mammogram for malignant neoplasm of breast (principal); R92.333 Mammographic heterogeneous density, bilateral breasts; Z78.0 Asymptomatic menopausal state; Z92.0 Personal history of contraception
CPT/HCPCS: 77063; 77067

== ENCOUNTER → 2024-10-16 | Outpatient (CLI) | payer MEDICARE, OTHER ==
--- NOTE | 2024-10-16 13:28 | CT ---
EXAMINATION TYPE: CT chest w con CT DLP: 419.5 mGycm, Automated exposure control for dose reduction was used. DATE OF EXAM: 10/16/2024 12:20 PM COMPARISON: Chest radiograph 10/11/2024 CLINICAL INDICATION:Female, 64 years old with history of R05.9 cough; PHH, coughing up blood and bloo dclots TECHNIQUE: Multiple axial images were obtained through the chest following the administration of 100 cc of Isovue 300. . Coronal and sagittal reformats reviewed. FINDINGS: LUNGS/ PLEURA: No pleural effusion, pneumothorax, focal consolidation. Minimal bilateral lower lobe d ependent subsegmental atelectasis. Right middle lobe 3.8 mm pulmonary nodule (series 4, image 33). E levation of the right hemidiaphragm. AIRWAY: Patent and unremarkable.. HEART: Size within normal limits. . No pericardial effusion. No significant coronary artery calcifica tions. MEDIASTINUM: No gross evidence of adenopathy. VASCULATURE: No aortic aneurysm. Four-vessel aortic arch. Minimal atherosclerotic calcification of t he aorta. MUSCULOSKELETAL: Mild disc degeneration changes are present throughout the thoracolumbar spine. No ac [place] osseous abnormality. SOFT TISSUES/LYMPH NODES: Unremarkable. LOWER NECK: Subcentimeter right thyroid lobe hypodense nodule. UPPER ABDOMEN: Small hiatal hernia. Couple of subcentimeter hypodense left hepatic lobe lesions which are too small to characterize but probably represent cysts. IMPRESSION: 1. No acute thoracic process. 2. Right middle lobe 3.8 mm pulmonary nodule. According to Fleischner criteria, in a low-risk patient no follow up is recommended. In a high-risk patient consider optional CT chest in 12 months. [facility], , 10/16/2024 1:26 PM
== END | disposition home or self-care (01) ==
LOC: RADCTMAIN 11:49
PROVIDERS: ATTEND Internal Medicine
DX: R91.1 Solitary pulmonary nodule (principal)
CPT/HCPCS: 71260; Q9967

== ENCOUNTER 2024-10-22 11:26 | Emergency (ER) | payer MEDICARE, OTHER ==
--- NOTE | 2024-10-22 11:51 | ED ---
URI HPI - General Chief Complaint: Upper Respiratory Infection Stated Complaint: Vomiting blood Time Seen by Provider: 10/22/24 11:48 Source: patient, RN notes reviewed Mode of arrival: ambulatory Limitations: no limitations - History of Present Illness Initial Comments: 64-year-old female with history of atrial fibrillation presenting for worsening cough. States she has had a worsening cough since December of last year but is worsening quality and over the past 2 weeks she reports she has been coughing up blood in the mucus. Reports quarter sized amounts of blood every few days. She also reports shortness of breath and chest discomfort with coughing. She believes she has been exposed to mold at her job. She has been seen by her PCP and has completed 2 rounds of antibiotics, amoxicillin and Keflex with no improvement. - Related Data Home Medications Medication Instructions Recorded Confirmed Zolpidem [Ambien] 10 mg PO HS PRN 12/01/16 02/17/22 Cholecalciferol [Vitamin D3 (25 25 mcg PO [place] 01/21/22 02/17/22 Mcg = 1000 Iu)] DULoxetine HCL [Cymbalta] 30 mg PO BID 01/21/22 02/17/22 Gabapentin 300 mg PO DAILY 01/21/22 02/17/22 Losartan [Cozaar] 50 mg PO DAILY 01/21/22 02/17/22 Rivaroxaban [Xarelto] 20 mg PO HS 01/21/22 02/17/22 Rosuvastatin [Crestor] 10 mg PO DAILY 01/21/22 02/17/22 Semaglutide [Rybelsus] 7 mg PO AC-BRKFST 01/21/22 02/21/22 hydroCHLOROthiazide 12.5 mg PO DAILY 01/21/22 02/17/22 Previous Rx's Medication Instructions Recorded Nitroglycerin Sl Tabs [Nitrostat] 0.4 mg SUBLINGUAL Q5M PRN tab 01/24/22 Colchicine [Colcrys] 0.6 mg PO DAILY #14 tablet 02/22/22 predniSONE [Deltasone] 40 mg PO DAILY 5 Days #10 tab 10/22/24 Allergies Allergy/AdvReac Type Severity Reaction Status Date / Time No Known Allergies Allergy Verified 10/22/24 11:30 Review of Systems ROS Statement: Those systems with pertinent positive or pertinent negative responses have been documented in the HPI. ROS Other: All systems not noted in ROS Statement are negative. Past Medical History Past Medical History: GERD/Reflux, Hypertension Additional Past Medical History / Comment(s): hx migraines, hiatal hernia, constipation, arthritis, History of Any Multi-Drug Resistant Organisms: MRSA Date of last positivie culture/infection: 2013 MDRO Source:: leg leg Past Surgical History: Uterine Ablation Additional Past Surgical History / Comment(s): wrist surgery Past Anesthesia/Blood Transfusion Reactions: No Reported Reaction Past Psychological History: No Psychological Hx Reported Past Alcohol Use History: Rare - Past Family History Mother Family Medical History: Cancer General Exam Limitations: no limitations General appearance: alert, in no apparent distress Head exam: Present: atraumatic, normocephalic, normal inspection Eye exam: Present: normal appearance, PERRL, EOMI. Absent: scleral icterus, conjunctival injection, periorbital swelling Respiratory exam: Present: normal lung sounds bilaterally. Absent: respiratory distress, wheezes, rales, rhonchi, stridor, chest wall tenderness, accessory muscle use Cardiovascular Exam: Present: regular rate, normal rhythm, normal heart sounds. Absent: systolic murmur, diastolic murmur, rubs, gallop, clicks GI/Abdominal exam: Present: soft, normal bowel sounds. Absent: distended, tenderness, guarding, rebound, rigid Neurological exam: Present: alert, oriented X3 Psychiatric exam: Present: normal affect, normal mood Skin exam: Present: warm, dry, intact, normal color. Absent: rash Course Vital Signs 10/22/24 10/22/24 10/22/24 11:27 12:01 12:10 Temperature 98.3 F Pulse Rate 79 79 80 Respiratory 20 Rate Blood Pressure 141/89 O2 Sat by Pulse 98 Oximetry 10/22/24 12:29 Temperature Pulse Rate 74 Respiratory 18 Rate Blood Pressure 132/80 O2 Sat by Pulse 97 Oximetry Medical Decision Making - Medical Decision Making Was pt. sent in by a medical professional or institution (, PA, SENIOR SEARCH MARKETING ANALYST, urgent care, hospital, or [facility]...) When possible be specific @ -No Did you speak to anyone other than the patient for history (EMS, parent, family, police, friend...)? What history was obtained from this source @ -No Did you review nursing and triage notes (agree or disagree)? Why? @ -I reviewed and agree with nursing and triage notes Were old charts reviewed (outside hosp., previous admission, EMS record, old EKG, old radiological studies, urgent care reports/EKG's, [facility] records)? Report findings @ -Reviewed chest x-ray from 2 weeks ago which revealed no acute cardiopulmonary process Differential Diagnosis (chest pain, altered mental status, abdominal pain women, abdominal pain men, vaginal bleeding, weakness, fever, dyspnea, syncope, headache, dizziness, GI bleed, back pain, seizure, CVA, palpatations, mental health, musculoskeletal)? @ -Differential Dyspnea: Coronary syndrome, arrhythmia, tamponade, asthma, COPD, pulmonary embolism, pneumonia, pneumothorax, pulmonary effusion, anaphylaxis, diabetic ketoacidosis, flailed chest, pulmonary contusion, diaphragmatic rupture, anemia, neuromuscular, this is not meant to be an all-inclusive list. EKG interpreted by me (3pts min.). @ -As above X-rays interpreted by me (1pt min.). @ -Chest x-ray reveals no acute process CT interpreted by me (1pt min.). @ -None done U/S interpreted by me (1pt. min.). @ -None done What testing was considered but not performed or refused? (CT, X-rays, U/S, labs)? Why? @ -None What meds were considered but not given or refused? Why? @ -None Did you discuss the management of the patient with other professionals (professionals i.e. , PA, SENIOR SEARCH MARKETING ANALYST, lab, RT, psych nurse, social work manager, belt lacer, teacher, vessel traffic officer, case reviewer)? Give summary @ -No Was smoking cessation discussed for >3mins.? @ -No Was critical care preformed (if so, how long)? @ -No Were there social determinants of health that impacted care today? How? (Homelessness, low income, unemployed, alcoholism, drug addiction, transportation, low edu. Level, literacy, decrease access to med. care, long-term, rehab)? @ -No Was there de-escalation of care discussed even if they declined (Discuss DNR or withdrawal of care, Hospice)? DNR status @ -No What co-morbidities impacted this encounter? (DM, HTN, Smoking, COPD, CAD, Cancer, CVA, ARF, Chemo, Hep., AIDS, mental health diagnosis, sleep apnea, morbid obesity)? @ -None Was patient admitted / discharged? Hospital course, mention meds given and route, prescriptions, significant lab abnormalities, going to OR and other pe rtinent info. @ -Discharge. 64-year-old female presenting for worsening cough with hemoptysis. Reports quarter size amount of blood in the mucus every several days. Vital signs within acceptable limits. Patient is well-appearing, no acute distress. EKG reveals normal sinus rhythm with no acute ST changes. Chest x-ray reveals no acute process. Lab including CBC, CMP, coags, D-dimer unremarkable. White blood cell count 6.6, hemoglobin 12.6. Patient was provided with steroid and DuoNeb. Upon reevaluation, patient reports improvement of symptoms. Discussed diagnosis of acute bronchitis. Patient will be provided with short course of outpatient steroids and advised to follow-up closely with PCP. Patient is agreeable to plan. Appropriate return precautions and supportive care discussed. Case was discussed with my ED attending Dr. Wright. Undiagnosed new problem with uncertain prognosis? @ -No Drug Therapy requiring intensive monitoring for toxicity (Heparin, Nitro, Insulin, Cardizem)? @ -No Were any procedures done? @ -No Diagnosis/symptom? @ -Acute bronchitis Acute, or Chronic, or Acute on Chronic? @ -Acute Uncomplicated (without systemic symptoms) or Complicated (systemic symptoms)? @ -Uncomplicated Side effects of treatment? @ -No Exacerbation, Progression, or Severe Exacerbation? @ -No Poses a threat to life or bodily function? How? (Chest pain, USA, MS, pneumonia, PE, COPD, DKA, ARF, appy, cholecystitis, CVA, Diverticulitis, Homicidal, Suicidal, threat to staff... and all critical care pts) @ -No - Lab Data Result diagrams: 10/22/24 12:07 10/22/24 12:07 Lab Results 10/22/24 10/22/24 10/22/24 Range/Units 12:07 12:07 12:07 WBC 6.58 (4.50-10.00) 10*3/uL RBC 3.97 L (4.10-5.20) 10*6/uL Hgb 12.6 (12.0-15.0) g/dL Hct 37.2 (37.2-46.3) % MCV 93.7 (80.0-97.0) fL MCH 31.7 (27.0-32.0) pg MCHC 33.9 (32.0-37.0) g/dL Plt Count 282 (140-440) 10*3/uL MPV 10.7 (9.5-12.2) fL Immature Gran % (Auto) 0.2 % Neutrophils % 52.2 % Lymphocytes % 39.2 % Monocytes % 6.4 % Eosinophils % 1.5 % Basophils % 0.5 % Immature Gran # 0.01 (0.00-0.04) 10*3/uL Neutrophils # 3.44 (1.80-7.70) 10*3/uL Lymphocytes # 2.58 (0.90-5.00) 10*3/uL Monocytes # 0.42 (0.20-1.00) 10*3/uL Eosinophils # 0.10 (0.04-0.35) 10*3/uL Basophils # 0.03 (0.00-0.10) 10*3/uL PT 11.8 (10.0-12.5) sec INR 1.1 (<1.2) APTT 27.5 (22.0-30.0) sec D-Dimer <0.17 (<0.60) mg/L FEU Sodium 140 (137-145) mmol/L Potassium 3.9 (3.5-5.1) mmol/L Chloride 108 H (98-107) mmol/L Carbon Dioxide 27 (22-30) mmol/L Anion Gap 5 mmol/L BUN 14 (7-17) mg/dL Creatinine 0.75 (0.52-1.04) mg/dL Est GFR (CKD-EPI)AfAm >90 (>60 ml/min/1.73 sqM) Est GFR (CKD-EPI)NonAf 86 (>60 ml/min/1.73 sqM) Glucose 109 H (74-99) mg/dL Calcium 9.4 (8.4-10.2) mg/dL Total Bilirubin 0.7 (0.2-1.3) mg/dL AST 30 (14-36) U/L ALT 29 (4-34) U/L Alkaline Phosphatase 71 (38-126) U/L Total Protein 6.6 (6.3-8.2) g/dL Albumin 3.8 (3.5-5.0) g/dL Influenza Type A (PCR) (Not Detectd) Influenza Type B (PCR) (Not Detectd) RSV (PCR) (Not Detectd) SARS-CoV-2 (PCR) (Not Detectd) 10/22/24 Range/Units 12:07 WBC (4.50-10.00) 10*3/uL RBC (4.10-5.20) 10*6/uL Hgb (12.0-15.0) g/dL Hct (37.2-46.3) % MCV (80.0-97.0) fL MCH (27.0-32.0) pg MCHC (32.0-37.0) g/dL Plt Count (140-440) 10*3/uL MPV (9.5-12.2) fL Immature Gran % (Auto) % Neutrophils % % Lymphocytes % % Monocytes % % Eosinophils % % Basophils % % Immature Gran # (0.00-0.04) 10*3/uL Neutrophils # (1.80-7.70) 10*3/uL Lymphocytes # (0.90-5.00) 10*3/uL Monocytes # (0.20-1.00) 10*3/uL Eosinophils # (0.04-0.35) 10*3/uL Basophils # (0.00-0.10) 10*3/uL PT (10.0-12.5) sec INR (<1.2) APTT (22.0-30.0) sec D-Dimer (<0.60) mg/L FEU Sodium (137-145) mmol/L Potassium (3.5-5.1) mmol/L Chloride (98-107) mmol/L Carbon Dioxide (22-30) mmol/L Anion Gap mmol/L BUN (7-17) mg/dL Creatinine (0.52-1.04) mg/dL Est GFR (CKD-EPI)AfAm (>60 ml/min/1.73 sqM) Est GFR (CKD-EPI)NonAf (>60 ml/min/1.73 sqM) Glucose (74-99) mg/dL Calcium (8.4-10.2) mg/dL Total Bilirubin (0.2-1.3) mg/dL AST (14-36) U/L ALT (4-34) U/L Alkaline Phosphatase (38-126) U/L Total Protein (6.3-8.2) g/dL Albumin (3.5-5.0) g/dL Influenza Type A (PCR) Not Detected (Not Detectd) Influenza Type B (PCR) Not Detected (Not Detectd) RSV (PCR) Not Detected (Not Detectd) SARS-CoV-2 (PCR) Not Detected (Not Detectd) Disposition Clinical Impression: Acute bronchitis Disposition: HOME SELF-CARE Condition: Stable Instructions (If sedation given, give patient instructions): Acute Bronchitis (ED) Additional Instructions: Start prednisone tomorrow and take as prescribed. Follow-up with your PCP for upcoming appointment. Please return to the Emergency Department if symptoms worsen or any other concerns. Prescriptions: predniSONE [Deltasone] 40 mg PO DAILY 5 Days #10 tab Is patient prescribed a controlled substance at d/c from ED?: No Referrals: Angel Park MD [Primary Care Provider] - 1-2 days Time of Disposition: 13:48
[2024-10-22] MEDS: IPRATROPIUM-ALBUTEROL 3 ML NEB INHALATION STA (12:00)
[2024-10-22 12:15] LABS: Basophils # (A) 0.03 10*3/uL (0.00-0.10); Basophils % (A) 0.5 %; Eosinophils % (A) 1.5 %; HCT 37.2 % (37.2-46.3); HGB 12.6 g/dL (12.0-15.0); Lymphocytes # (A) 2.58 10*3/uL (0.90-5.00); Lymphocytes % (A) 39.2 %; MCH 31.7 pg (27.0-32.0); MCHC 33.9 g/dL (32.0-37.0); MCV 93.7 fL (80.0-97.0); Mean Platelet Volume 10.7 fL (9.5-12.2); Monocytes # (A) 0.42 10*3/uL (0.20-1.00); Monocytes % (A) 6.4 %; Neutrophils # (A) 3.44 10*3/uL (1.80-7.70); Neutrophils % (A) 52.2 %; Platelet Count 282 10*3/uL (140-440); RBC 3.97 10*6/uL (4.10-5.20); RDW 13.2 % (11.5-14.5); WBC 6.58 10*3/uL (4.50-10.00)
[2024-10-22] MEDS: methylPREDNISolone SOD SUCCI 125 MG/2 ML VIAL IV STA (12:21)
[2024-10-22 12:31] VITALS: RESP 18
[2024-10-22 12:32] LABS: ALT 29 U/L (4-34); AST 30 U/L (14-36); African American GFR (CKD) >90 (>60 ml/min/1.73 sqM); Albumin 3.8 g/dL (3.5-5.0); Alkaline Phosphatase 71 U/L (38-126); Anion Gap 5 mmol/L; Blood Urea Nitrogen 14 mg/dL (7-17); Calcium 9.4 mg/dL (8.4-10.2); Carbon Dioxide 27 mmol/L (22-30); Chloride 108 mmol/L (98-107); Glucose 109 mg/dL (74-99); Non-African American GFR(CKD) 86 (>60 ml/min/1.73 sqM); Potassium 3.9 mmol/L (3.5-5.1); Sodium 140 mmol/L (137-145); Total Bilirubin 0.7 mg/dL (0.2-1.3); Total Protein 6.6 g/dL (6.3-8.2)
[2024-10-22 12:46] LABS: INR 1.1 (<1.2); Partial Thromboplastin Time 27.5 sec (22.0-30.0); Prothrombin Time 11.8 sec (10.0-12.5)
[2024-10-22 12:51] LABS: Influenza A Not Detected (Not Detectd); Influenza B Not Detected (Not Detectd); RSV Not Detected (Not Detectd)
--- NOTE | 2024-10-22 13:12 | XR ---
EXAMINATION TYPE: XR chest 2V DATE OF EXAM: 10/22/2024 12:26 PM COMPARISON: 10/10/2024 CLINICAL INDICATION: Female, 64 years old with history of cough, shortness, , TECHNIQUE: PA and lateral views FINDINGS: Heart upper limits of normal in size. Aorta and pulmonary vasculature within normal limits. Hazy mid and lower lung densities relating to overlying soft tissue. No consolidation or pleural effusion. IMPRESSION: No acute cardiopulmonary process. [facility], Workstation: [facility], 10/22/2024 1:10 PM
[2024-10-22 14:00] VITALS: BP 137/89; PULSE 70; TEMP 97.8
== END 2024-10-22 14:00 | disposition home or self-care (01) ==
LOC: EC 11:26
DX: J20.9 Acute bronchitis, unspecified (principal)
CPT/HCPCS: 36415; 94640; 93005; 85379; 80053; 85025; 85610; 85730; 87636; 71046; 99284; 96374; J2919